=== PATIENT | female | born 1965 | race Caucasian/White ===

== ENCOUNTER 2023-07-19 09:23 | Outpatient (CLI) | payer BC, SELFPAY ==
[2023-07-19 09:42] VITALS: BMI 27.8
[2023-07-19 10:18] LABS: Basophils # 0.1 K/mm3 (0-0.2); Basophils % 1.7 % (0.1-2.0); Eosinophils # 0.1 K/mm3 (0.0-0.4); Eosinophils % 2.2 % (0.1-12.0); Hematocrit 41.8 % (37.0-47.0); Hemoglobin 13.8 g/dL (12.2-16.2); Lymphocytes # 1.2 K/mm3 (0.7-4.5); Lymphocytes % 24.6 % (10-50); Mean Corpuscular Hemoglobin 30.3 pg (27.0-31.2); Mean Corpuscular Volume 91.9 fl (81-99); Mean Platelet Volume 7.5 fl (7.4-10.4); Monocytes # 0.3 K/mm3 (0.1-1.0); Monocytes % 6.1 % (1.7-9.3); Neutrophils # 3.2 K/mm3 (1.8-7.8); Neutrophils % 65.3 % (37.0-80.0); Platelet Count 188 K/mm3 (142-424); Red Blood Count 4.55 M/mm3 (4.20-5.40); Red Cell Distribution Width 14.3 % (11.5-17.5); White Blood Count 4.9 K/mm3 (4.8-10.8)
[2023-07-19 10:29] LABS: Alanine Aminotransferase 26 U/L (12-78); Albumin Level 4.2 g/dl (3.5-5.0); Albumin/Globulin Ratio 1.4 (1.1-1.8); Alkaline Phosphatase 74 U/L (38-126); Anion Gap 13.1 mEq/L (5-15); Aspartate Amino Transferase 36 U/L (14-36); Bilirubin,Total 0.9 mg/dl (0.2-1.3); Blood Urea Nitrogen 16 mg/dl (7-17); Calcium 9.1 mg/dl (8.4-10.2); Carbon Dioxide 27 mmol/L (22.0-30.0); Chloride 103 mmol/L (98-107); Creatinine Clearance Estimated 93 mL/min (50-200); Estimated Glomerular Filt Rate 85 ml/min (>60); GFR (African American) 103 ML/MIN (>60); Globulin 2.9 g/dL (1.3-3.2); Glucose 111 mg/dl (74-100); Lactate Dehydrogenase 286 U/L (313-618); Potassium 4.1 mmoL/L (3.5-5.1); Sodium 139 mmol/L (136-145); Total Protein,Serum 7.1 g/dl (6.3-8.2)
--- NOTE | 2023-07-19 11:48 | PC.NURSE ---
1005 Patient here for labs only per Dr. Cole order. CBC, CMP, LDH obtained via venipuncture to R AC with butterfly needle. Patient tolerated well.
== END 2023-07-19 10:10 | disposition home or self-care (01) ==
LOC: INF 09:34
PROVIDERS: Visit Provider Internal Medicine Medical Oncology
DX: C82.90 Follicular lymphoma, unspecified, unspecified site (principal)
CPT/HCPCS: 36415; 80053; 83615; 85025

== ENCOUNTER 2024-08-21 14:26 | Outpatient (CLI) | payer BC, SELFPAY ==
[2024-08-21 14:55] LABS: Basophils # 0.1 K/mm3 (0-0.2); Eosinophils # 0.1 Kmm3 (0.0-0.4); Eosinophils % 0.8 % (0.1-12.0); Hematocrit 39.2 % (37.0-47.0); Hemoglobin 13.1 g/dL (12.2-16.2); Immature Granulocytes # 0.01 10^3uL; Immature Granulocytes % 0.2 %; Lymphocytes # 1.6 K/mm3 (0.7-4.5); Lymphocytes % 25.6 % (10-50); Mean Corpuscular HGB Conc 33.4 g/dL (31.8-35.4); Mean Corpuscular Hemoglobin 30.7 pg (27.0-31.2); Mean Corpuscular Volume 91.8 fl (81-99); Mean Platelet Volume 10.1 fl (7.4-10.4); Monocytes # 0.4 K/mm3 (0.1-1.0); Monocytes % 6.9 % (1.7-9.3); Neutrophils # 4.1 K/mm3 (1.8-7.8); Neutrophils % 65.5 % (37.0-80.0); Nucleated Red Blood Cells # 0 10^3/uL; Nucleated Red Blood Cells % 0 %; Platelet Count 194 K/mm3 (142-424); Red Blood Count 4.27 M/mm3 (4.20-5.40); Red Cell Distribution Width 12.7 % (11.5-17.5); Red Cell Distribution Width-SD 42.2 fL; White Blood Count 6.2 K/mm3 (4.8-10.8)
--- OUTSIDE RECORDS SUMMARY | 2024-08-21 15:09 | XMS_ITS | Data Portability ---
Author Organization [facility] [place] - [facility] Address [address] [place] [address] Assessment No assessment recorded. Plan of Treatment Reminders Order Date Submit Date Provider Last Modified By Organization Details Last Modified Time Details Appointments None recorded. Lab PPD (purified protein derivative) , skin test [address], [address], 4 15:24:55 PPD (purified protein derivative) , skin test [address], [address], 4 15:16:38 Referral None recorded. Procedures None recorded. Surgeries None recorded. Imaging None recorded. Medication Orders Aplisol 5 tub. unit/0.1 mL intradermal injection solution 2023 024 [place] [address] Not available 4 15:54:46 Patient TargetsNo targets recorded. Patient InstructionsNo instructions recorded. Reason for Referral None Reported. Results Created Date Observation Date Name Description Value Unit Range Abnormal Flag Note LastModifiedBy Organization Detail LastModifiedTime 08/03/19 24 08/03/2023 PPD (wandy fied prote in deriv ative ), skin test TB negati ve Not Available [address], [address], 08/03/2023 15:19:08 Result Notes None recorded. Problems Name Problem SNOMED Code Status Onset Date Resolution Date Notes Provider Name and Address Organization Details Recorded Time Tubercul osis screenin g Active 2023 CARLTON tobar [facility] [place]. 4 15:18:49 Discharg e from nipple [id number] Completed 201512/11/2015 Problem Code: N64.52; Problem Code Type: ICD-10; Not Available [facility] 2 22:23:29 Suprapub ic pain 213488964 Completed 201512/11/2015 Not Available [facility] 2 22:23:29 Medical examinat ion for suspecte d conditio n Active 2020 Problem Code: Z03.89; Problem Code Type: ICD-10; Not Available [facility] 2 22:23:29 Exposure to SARS-CoV -2 Active 2021 Problem Code: Z20.822; Problem Code Type: ICD-10; Not Available [facility] 2 22:23:29 Suspecte d respirat ory disease 153273152 Active 2019 Not Available [facility] 2 22:23:29 [facility]actor [facility] [id number] Completed 201512/11/2015 Problem Code: 611.6; Problem Code Type: ICD-9; Not Available [facility] 2 22:23:29 Abdomina l pain 01877041 Completed 201512/11/2015 Problem Code: 789.09; Problem Code Type: ICD-9; Not Available [facility] 2 22:23:29 Problem Notes None recorded. Procedures Surgical History Date Name Laterality Status Provider Name and Address Organization Details Recorded Time 09/27/19 16 cholecystectomy completed Not Available [facility] 11/15/2021 22:56:26 09/27/19 16 delivery only completed Not Available [facility] 11/15/2021 22:56:26 Imaging Results None recorded. Procedure Notes None recorded. Medical Equipment None Reported. Allergies Allergen ID Allergen Name Allergen Category Reaction Reaction Severity Criticality Documentation Date Start Date Code Code System Note Provider Name and Address Organization Details Recorded Time amoxicill in trihydrat e medicatio n Not available Not available Not available 11/15/2021 37808 8 RxNorm Aller gyCod e: ''; Aller gyNam e: 'Amox icill in'; Aller gyCon ceptT ype: ''; Not Available [facility] 2 22:54:56 Medications Name Sig Start Date Stop Date Status Note LastModified by Organization Details LastModified Time prednisone 10 mg tablet TAKE 3 TABLETS BY MOUTH DAILY FOR 5 DAYS active Not Available Not Available N ot Available doxycycline hyclate 100 mg capsule TAKE 1 CAPSULE BY MOUTH TWICE PER DAY FOR 10 DAYS active Not Available Not Available No t Available azithromycin 250 mg tablet TAKE 2 TABLETS BY MOUTH ON DAY ONE. THEN 1 TABLET DAILY ON DAYS 2-5. active Not Available Not Available No t Available hydrocodone 5 mg-acetamino phen 325 mg tablet TAKE 1 TABLET BY MOUTH EVERY 6 HOURS NEEDED FOR PAIN FOR UP TO 3 DAYS. MAX DAILY AMOUNT: 4 TABLETS active Not Available Not Available No t Available Aplisol 5 tub. unit/0.1 mL intradermal injection solution Inject 0.1 mL by intradermal route. 2023 active Not Available Not Available Not Avai lable prednisone 20 mg tablet TAKE 1 TABLET (20 MG TOTAL) BY MOUTH DAILY FOR 10 DAYS active Not Available Not Available No t Available phentermine 37.5 mg tablet TAKE 1 TABLET BY MOUTH ONCE PER DAY BEFORE BREAKFAST active Not Available Not Available No t Available omeprazole 40 mg capsule,vivian yed release TAKE 1 CAPSULE BY MOUTH ONCE A DAY BEFORE A MEAL active Not Available Not Available No t Available triamcinolon e acetonide 0.1 % topical cream APPLY EXTERNALLY TWICE A DAY FOR 7 DAYS active Not Available Not Available N ot Available ketorolac 10 mg tablet TAKE 1 TABLET (10 MG TOTAL) BY MOUTH EVERY 6 HOURS NEEDED FOR UP TO 5 DAYS active Not Available Not Available No t Available amitriptylin e 25 mg tablet TAKE 1 TABLET BY MOUTH ONCE PER DAY AT BEDTIME active Not Available Not Available No t Available pravastatin 10 mg tablet TAKE 1 TABLET BY MOUTH ONCE PER DAY AT BEDTIME active Not Available Not Available No t Available montelukast 10 mg tablet TAKE 1 TABLET BY MOUTH ONCE PER DAY active Not Available Not Available No t Available pravastatin 20 mg tablet TAKE 1 TABLET BY MOUTH ONCE PER DAY AT BEDTIME (DOSE INCREASE) active Not Available Not Available No t Available mupirocin 2 % topical ointment APPLY OINTMENT EXTERNALLY TWO TIMES A DAY FOR 7 DAYS active Not Available Not Available No t Available ergocalcifer ol (vitamin D2) 1,250 mcg (50,000 unit) capsule TAKE 1 CAPSULE BY MOUTH ONCE A WEEK active Not Available Not Available No t Available methylpredni solone 4 mg tablets in a dose pack TAKE ACCORDING TO PACKAGE DIRECTIONS active Not Available Not Available N ot Available albuterol sulfate HFA 90 mcg/actuatio n aerosol inhaler INHALE 1-2 PUFFS BY INHALATION EVERY 6 HOURS NEEDED active Not Available Not Available No t Available celecoxib 100 mg capsule TAKE 1 CAPSULE BY MOUTH TWO TIMES A DAY WITH FOOD active Not Available Not Available No t Available ondansetron 4 mg disintegrati ng tablet DISSOLVE 1 TABLET ON THE TONGUE EVERY 8 HOURS NEEDED FOR NAUSEA/VOMI TING active Not Available Not Available No t Available fluticasone propionate 50 mcg/actuatio n nasal spray,suspen mary SPRAY 1 SPRAY IN EACH NOSTRIL ONCE A DAY active Not Available Not Available N ot Available diazepam 5 mg tablet TAKE 1 TABLET (5 MG TOTAL) BY MOUTH EVERY 8 HOURS NEEDED (MUSCLE SPASMS) FOR UP TO 3 DAYS. MAX DAILY AMOUNT: 15 MG active Not Available Not Available No t Available cyclobenzapr ine 5 mg tablet TAKE 1 TABLET BY MOUTH EVERY EIGHT HOURS active Not Available Not Available Not Available levocetirizi ne 5 mg tablet TAKE 1 TABLET BY MOUTH EVERY EVENING active Not Available Not Available No t Available Creon 36,000 unit-114,000 unit-180,000 unit capsule,vivian yed release active Not Available Not Available Not Available Vitals None Recorded Social History None recorded. Functional Status None recorded. Mental Status None recorded. Family History Relationship Description Onset Age of this Age Resolved Age Notes LastModified by Organization Details LastModified Time Unspecified Relation Family history of diabetes mellitus type 2 Relati ve: ''; [email or web address] Not available 11/15/2021 23:04:23 Unspecified Relation Family history of Hypertension Relati ve: ''; [email or web address] Not available 11/15/2021 23:04:23 Notes:*Procedure Description : Documented family medical history in mother*Relative: Mother *Procedure Description: Documented family medical history in father*Relative: Father Medical History No medical history recorded. Gynecological HistoryNo gynecological history recorded. Obstetrics History GPAL:G 0 P 0 0 0 0 Past Encounters Encounter ID Performer Location Encounter Start Date Encounter Closed Date Diagnosis/Indication Diagnosis SNOMED-CT Code Diagnosis ICD10 Code Diagnosis Note [id number] DEEPIKA LARSON[address] [place] [address] 08/01/2023 15:28:57 08/01/2023 17:20:06 Tuberculosis screening 471448319 Z11.1 [id number] [facility] [place] [address] 08/03/2023 15:13:33 08/03/2023 15:28:29 Tuberculosis screening 903373978 Z11.1 Health Concerns Section Related Observation LastModified by Organization Detai ls LastModified Time None Recorded Concern Status LastModified by Organization Details LastModified Time None Recorded Advance Directives Directive None Recorded Payers Insurance Date Sequence Insurance Name Policy Number Policy Sams Covered Member ID Sams Member ID Guarantor Name 08/01/2023 1 *SELF PAY* Th sirena Montemayor OBMaren Episode No OBEpisode recorded.
--- OUTSIDE RECORDS SUMMARY | 2024-08-21 15:09 | XMS_ITS | Data Portability ---
Author Organization [facility] [place], [facility] [place] Address [address] [place] [address] Care Team Providers Care Mainspring Strip Inspector Name Role Phone CALOS GANDHI Referring Provider [phone] Assessment No assessment recorded. Plan of Treatment Reminders Order Date Submit Date Provider Last Modified By Organization Details Last Modified Time Details Appointments OV EST 15 2024 09:00A M ROSALINA LY MD Not available Not available Not available Lab None recorded. Referral None recorded. Procedures None recorded. Surgeries None recorded. Imaging None recorded. Medication Orders clobetaso l 0.05 % topical gel 2024 025 [facility], [address] [place], [address], 07/01/2024 13:18:23 Patient TargetsNo targets recorded. Patient InstructionsNo instructions recorded. Reason for Referral None Reported. Results Created Date Observation Date Name Description Value Unit Range Abnormal Flag Note LastModifiedBy Organization Detail LastModifiedTime Result Notes None recorded. Problems Name Problem SNOMED Code Status Onset Date Resolution Date Notes Provider Name and Address Organization Details Recorded Time Oral lichen planus 720987889 Active 025 ROSALINA LY MD [address] [place] [address], [address], [place], [address] , [facility] [place] 06/25/2024 15:29:37 Problem Notes None recorded. Procedures Surgical History Date Name Laterality Status Provider Name and Address Organization Details Recorded Time operation on gallbladder completed Nora Ang [facility] [place] 06/25/2024 15:06:11 Imaging Results None recorded. Procedure Notes None recorded. Medical Equipment None Reported. Allergies Allergen ID Allergen Name Allergen Category Reaction Reaction Severity Criticality Documentation Date Start Date Code Code System Note Provider Name and Address Organization Details Recorded Time 712633 amoxicill in medicatio n Not available Not available Not available 06/25/2024 723 RxNorm Noraterry Jones n [facility], [facility] & [place] 15:03:19 Medications Name Sig Start Date Stop Date Status Note LastModified by Organization Details LastModified Time celecoxib 200 mg capsule TAKE 1 CAPSULE BY MOUTH TWICE PER DAY WITH FOOD active Not Available Not Available No t Available cyclobenzap rine 10 mg tablet TAKE 1/2 TABLET (5 MG TOTAL) BY MOUTH EVERY 8 (EIGHT) HOURS NEEDED FOR MUSCLE SPASMS. active Not Available Not Available No t Available prednisone 10 mg tablet TAKE 1 TABLET BY MOUTH ONCE PER DAY FOR 5 DAYS (HOLD CELEBREX WHILE TAKING) 06/25 completed Not Available Not Available Not Available doxycycline hyclate 100 mg capsule TAKE 1 CAPSULE BY MOUTH TWICE PER DAY FOR 7 DAYS active Not Available Not Available No t Available pravastatin 40 mg tablet TAKE 1 TABLET BY MOUTH ONCE A DAY (DOSE INCREASE) active Not Available Not Available No t Available fluconazole 150 mg tablet TAKE 1 TABLET ORALLY EVERY OTHER DAY FOR 3 DAYS active Not Available Not Available No t Available benzonatate 200 mg capsule TAKE 1 CAPSULE BY MOUTH NEEDED THREE TIMES A DAY FOR 10 DAYS active Not Available Not Available No t Available citalopram 10 mg tablet TAKE 1 TABLET BY MOUTH ONCE A DAY active Not Available Not Available No t Available omeprazole 40 mg capsule,del ayed release TAKE 1 CAPSULE BY MOUTH ONCE PER DAY BEFORE A MEAL active Not Available Not Available No t Available clobetasol 0.05 % topical gel APPLY A THIN LAYER TO THE AFFECTED AREA(S) BY TOPICAL ROUTE 4 TIMES PER DAY active Not Available Not Available No t Available amitriptyli ne 25 mg tablet TAKE 1 TABLET BY MOUTH EVERY NIGHT AT BEDTIME active Not Available Not Available No t Available cyanocobala min (vit B-12) 1,000 mcg/mL injection solution INJECT 1ML ONCE A WEEK FOR 4 WEEKS active Not Available Not Available No t Available oseltamivir 75 mg capsule TAKE 1 CAPSULE BY MOUTH TWICE A DAY FOR 5 DAYS active Not Available Not Available No t Available montelukast 10 mg tablet TAKE 1 TABLET BY MOUTH ONCE PER DAY active Not Available Not Available No t Available pravastatin 20 mg tablet TAKE 1 TABLET BY MOUTH ONCE A DAY active Not Available Not Available No t Available gabapentin 100 mg capsule TAKE 1 CAPSULE BY MOUTH THREE TIMES DAILY active Not Available Not Available No t Available ergocalcife rol (vitamin D2) 1,250 mcg (50,000 unit) capsule TAKE 1 CAPSULE BY MOUTH ONCE A WEEK active Not Available Not Available No t Available albuterol sulfate HFA 90 mcg/actuati on aerosol inhaler INHALE 1 PUFF BY MOUTH EVERY 4 HOURS NEEDED active Not Available Not Available No t Available celecoxib 100 mg capsule TAKE 1 CAPSULE BY MOUTH TWICE PER DAY WITH FOOD 06/25 completed Not Available Not Available Not Available levocetiriz ine 5 mg tablet TAKE 1 TABLET BY MOUTH IN THE EVENING ONCE A DAY active Not Available Not Available No t Available Creon active Not Available Not Availa ble Not Available Vitals Date Recorded Body height Body mass index (BMI) Body weight Body temperature Oxygen saturation Oxygen saturation in Arterial blood by Pulse oximetry Provider Name and Address Organization Details Last Updated DateTime 5 157.48 cm 30.2 kg/m2 81969.7 4 g 98 [degF] 96 % 96 % Nora gibbs [facility] [place] 15:03:06 Social History Question Answer Notes LastModified by [employer] Details LastModified Time Tobacco Smoking Status Never Smoker Shilpi Schmitz ekaterina, [facility] [place] 06/23/2024 14:22:28 Has Tobacco Cessation Counseling Been Provided? No Information not available 06/23/2024 Sex: Female Functional Status Question Answer Note LastModified by [employer] Details LastModified Time Do you use any illicit or recreational drugs? No Information not available 06/23/2024 Do you or have you ever used any other forms of tobacco or nicotine? No Information not available 06/23/2024 What is your level of alcohol consumption? None Information not available 06/23/2024 Mental Status None recorded. Family History Relationship Description Onset Age of this Age Resolved Age Notes LastModified by Organization Details LastModified Time Father No current problems or disability Not available 14:55:11 Father Chronic obstructive pulmonary disease pt. added direct ly (06/24) [email or web address] Not available 06/24/2024 07:41:20 Father Disorder of endocrine system pt. added direct ly (06/24) [email or web address] Not available 06/24/2024 07:41:55 Mother No current problems or disability [email or web address] Not available 14:55:11 Mother Chronic obstructive pulmonary disease pt. added direct ly (06/24) [email or web address] Not available 06/24/2024 07:41:20 Mother Disorder of endocrine system pt. added direct ly (06/24) [email or web address] Not available 06/24/2024 07:41:55 Mother Myocardial infarction pt. added direct ly (06/24) [email or web address] Not available 06/24/2024 07:42:28 Sister Disorder of endocrine system pt. added direct ly (06/24) [email or web address] Not available 06/24/2024 07:41:55 Sister Myocardial infarction pt. added direct ly (06/24) [email or web address] Not available 06/24/2024 07:42:28 Medical History Condition Response Allergies/Hayfever N Heart Problems N None N Heart Conditions N Emphysema N Migraines N Thyroid Problems N Developmental Delay N Depression N Glaucoma N Anemia N Immune System Disorder N Anesthesia Complications N Heart Attack (GA) N Anxiety Disorder N Diabetes N Bleeding Disorder N Arthritis N Hearing Loss N Tuberculosis N Acid Reflux (GERD) Y Hyperlipidemia N Cancer Y Stroke N Asthma N Sleep Disorder N GERD/Reflux N Heart Disease N Fibromyalgia N Headaches N Hypertension N Speech Delay N Kidney Disease N Gynecological HistoryNo gynecological history recorded. Obstetrics History GPAL:G 0 P 0 0 0 0 Past Encounters Encounter ID Performer Location Encounter Start Date Encounter Closed Date Diagnosis/Indication Diagnosis SNOMED-CT Code Diagnosis ICD10 Code Diagnosis Note [id number] ROSALINA LY MD [facility] [address] [facility] [address] 06/25/2024 14:54:51 06/25/2024 15:31:30 Oral lichen planus 112352521 L43.8 - Various areas of white striations as well as erythemato us plaques and areas of atrophy within the oral cavity which patient reports as painful areas. These findings are consistent with possible lichen planus likely combinatio n of reticular and erythemato us type- Will start her on steroid gel 4x daily to see if we can get some symptomati c improvemen t- I would prefer that she does not chew gum at all, however, if she needs to she needs to avoid mint and cinnamon flavored gums- Would also like her to avoid toothpaste with mint or cinnamon flavor as well as SLS- Avoid acidic or spicy foods- Return to clinic in 3-4 weeks Health Concerns Section Related Observation LastModified by Organization Detai ls LastModified Time None Recorded Concern Status LastModified by Organization Details LastModified Time None Recorded Advance Directives Directive None Recorded Payers Insurance Date Sequence Insurance Name Policy Number Policy Sams Covered Member ID Sams Member ID Guarantor Name 07/22/2024 1 [place] [id number] Andres Montemayor [id number] Lisa Montemayor Notes Date Note Type Note Provider Name and Address Organization Details Recorded Time 06/25/2024 text/html Patient presents to clinic for evaluation and management of mouth pain. She reports that for the past 3 months she has been having issues with her mouth feeling raw. Symptoms are worse with acidic foods but any foods can set it off. She does chew gum frequently, always chews double mint gum. She notes that her mouth is frequently very dry which she feels is due to medications and this is why she chews gum. Had labs done which demonstrated low levels of B12 and is currently on supplements for this which she feels has helped the pain some. Previously underwent chemotherapy due to Non hodgkins lymphoma. ROSALINA LY MD [address] [place] [address], [address], [place], [address], [place] - [facility] [place] [facility] [place] 06/25/2024 15:36:24 OBGyn Episode No OBEpisode recorded.
--- OUTSIDE RECORDS SUMMARY | 2024-08-21 15:09 | XMS_ITS | Clinical Summary ---
Author Organization [facility] Address [address] [id number] Care Team Providers Care Police Specialist Name Role Phone Sandra Smith Primary Care Provider [phone] Family History Medical History Relation Name Comments Diabetes Father Other cancer Mother Cardiac disorder Other 1 Hypertension Other 2 Lung disease Other 3 Hyperlipidemia Other 4 Relation Name Status Comments Father Mother Other 1 Other 2 Other 3 Other 4 Social History Tobacco Use Types Packs/Day Years Used Date Smoking Tobacco: Every Day Alcohol Use Standard Drinks/Week Comments No 0 (1 standard drink = 0.6 oz pur e alcohol) Comments Unknown Sex and Gender Information Value Date Recorded Sex Assigned at Not on file Legal Sex Female 8:21 PM EDT Gender Identity Not on file Sexual Orientation Not on file Last Filed Vital Signs Vital Sign Reading Time Taken Comments Blood Pressure 115/75 12/25/2019 9:22 AM EDT Pulse 59 08/20/2018 1:43 PM EDT Temperature - - Respiratory Rate - - Oxygen Saturation - - Inhaled Oxygen Concentration - - Weight 78.3 kg (172 lb 9.9 oz) 12/25/2019 9:22 A M EDT Height 157.5 cm (5' 2 ) 12/25/2019 9:22 AM EDT Body Mass Index 31.57 12/25/2019 9:22 AM EDT Plan of Treatment Health Maintenance Due Date Last Done Comments [facility]-Depression Screening 1963 [facility]-/Child/Adol SDOH Screenings 1965 [facility]- SDOH Screenings 1981 [facility]-Adult SDOH Screenings 1981 [facility]-Pap Smear 01/18/1984 [facility]-Cervical Cancer Screening 1993 [facility]-HPV/Cotest 1993 CT Colonography 01/18/2008 Colonoscopy 01/18/2008 FIT-DNA 01/18/2008 FIT 01/18/2008 FOBT 01/18/2008 Sigmoidoscopy 01/18/2008 [facility]-Colorectal Cancer Screening 01/18/2008 [facility]-Pneumococcal Vaccine: 50 + Years (1 of 1 - PCV) 2013 [id number] Vaccine ( season) 2023 06/18/2020, 05/20/2020 [facility]-Influenza Vaccine (Seaso n Ended) 2024 12/15/2009 [facility]-DTaP,Tdap,and Td Vaccine s (2 - Td or Tdap) 02/21/2028 02/20/2018 [facility]-RSV Vaccine: 60+ Years o r (1 - 1-dose 75+ series) 2038 [facility]-Zoster Vaccines Completed 06/27/2018, 03/08/2018 HPV Vaccines Aged Out No longer eligi ble based on patient's age to complete this topic [facility]-HIB Vaccines Aged Out No longer e ligible based on patient's age to complete this topic [facility]-Hepatitis A Vaccines Aged Out No longer eligible based on patient's age to complete this topic [facility]-IPV Vaccines Aged Out No longer e ligible based on patient's age to complete this topic [facility]-Rotavirus Vaccines Aged Out No lo nger eligible based on patient's age to complete this topic Insurance [facility] MEDICAID Care Teams Police Specialist Relationship Specialty Start Date End Date Sandra Smith PA [address] [place] [address] PCP - General 07/23/20
--- OUTSIDE RECORDS SUMMARY | 2024-08-21 15:09 | XMS_ITS | Data Portability ---
Author Organization [facility] Address [address] [facility] [address] [place] [address] Care Team Providers Care Matting Press Tender Name Role Phone NATALIE COLE Medical Oncologist [phone] Assessment Encounter Date Assessment Date Assessment LastModified by Organization Details LastModified Time 08/24/2016 08/24/2016 Ms. 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 She is doing well clinically and serologically. Therefore, we will continue to follow with observation only. This will include return to clinic in 3 months with examination, lab work and CAT scans. If things remain stable at that point we may increase imaging interval to 1 year. She voiced understanding and agreement and is to call if there are any questions or concerns at any time. Not available 08/24/2016 16:34:51 11/24/2016 11/24/2016 Ms. Montemayor is about 3.5 years out from completing a truncated course of Treanda/Rituxan for follicular non-Hodgkin's lymphoma, as described above. She is doing well clinically and serologically. Radiographically there is slight increase in disease in the upper retroperitoneum but other disease is stable. I would recommend continuing to follow up observation only to include return to clinic in 6 months with examination, lab work and CAT scans. For her easy bruising we will check a PT/PTT but I have reviewed with her that her platelets are normal. She voiced understanding and agreement with the above. I have asked her to call if any questions or concerns at any time. Not available 11/24/2016 14:19:23 05/28/2017 05/28/2017 Ms. Montemayor is about 4 years out from completing a truncated course of Treanda/Rituxan for follicular non-Hodgkin's lymphoma, as described above. She is doing well clinically and serologically. We will have her scheduled for CAT scans in the near future to assess for lymphadenopathy and I will contact her with these results. Assuming no significant changes on CAT scan, she would be seen back in 6 months. She voiced understanding and agreement with the above. I have asked her to call if any questions or concerns at any time. Not available 05/28/2017 14:26:05 11/05/2017 11/05/2017 Ms. Montemayor is about 4.5 years out from completing a truncated course of Treanda/Rituxan for follicular non-Hodgkin's lymphoma, as described above. She is doing well clinically and we will follow up on pending serologies. This will include recheck her B12 level. She understands that with B12 deficiency, she will require monthly lifelong injections. I also agree with repeat EGD given her newfound B12 deficiency and increase in GERD symptoms. Otherwise, she will return in 6 months with lab work and CAT scans. I have asked her to let me know if there are any questions or concerns at any time. Not available 11/05/2017 09:34:30 05/20/2018 05/20/2018 Ms. Montemayor is about 5 years out from completing a truncated course of Treanda/Rituxan for follicular non-Hodgkin's lymphoma, as described above. She is doing well clinically, serologically and radiographically. We will see her back in 6 months with examination limited work only. Next imaging will be in one year unless there are indications in the interim to do otherwise. She voiced understanding and agreement with the above. Not available 05/20/2018 12:22:29 Plan of Treatment Reminders Order Date Submit Date Provider Last Modified By Organization Details Last Modified Time Details Appointments None record ed. Lab None record ed. Referral None record ed. Procedures None record ed. Surgeries None record ed. Imaging None record ed. Medication Orders None record ed. Patient TargetsNo targets recorded. Patient Instructions Encounter Date Encounter Id Patient Instructions Last Modified By Organization Details Last Modified Time 11/24/2016 [id number] learning about healthy weight CARMEN Not available 11/26/2016 13:10:11 05/28/2017 [id number] learning about healthy weight Not available 05/28/2017 14:25:02 Reason for Referral None Reported. Results Created Date Observation Date Name Description Value Unit Range Abnormal Flag Note LastModifiedBy Organization Detail LastModifiedTime 11/25/19 17 11/24/2016 CBC w/ auto diff white blood cells 5.0 K/uL 3.8-10 .8 normal Not Available [facility] [address] [place] [address], [id number], 11/24/2016 10:13:24 11/25/19 17 11/24/2016 CBC w/ auto diff red blood cells 4.41 M/uL 3.80-5 .20 normal Not Available [facility] [address] [place] [address], [address], 11/24/2016 10:13:24 11/25/19 17 11/24/2016 CBC w/ auto diff hemoglobin 13.8 g/dL 12.0-1 6.0 normal Not Available [facility] [address] [place] [address], [address], 11/24/2016 10:13:24 11/25/19 17 11/24/2016 CBC w/ auto diff hematocrit 40.0 % 35.0-4 7.0 normal Not Available [facility] [address] [place] [address], [address], 11/24/2016 10:13:24 11/25/19 17 11/24/2016 CBC w/ auto diff MCV 91 fL 80-100 normal Not Available [facility] [address] [place] [address], [address], 11/24/2016 10:13:24 11/25/19 17 11/24/2016 CBC w/ auto diff MCH 31 pg 26-35 normal Not Available [facility] [address] [place] [address], [address], 11/24/2016 10:13:24 11/25/19 17 11/24/2016 CBC w/ auto diff MCHC 35 g/dL 32-36 normal Not Available [facility] [address] [place] [address], [address], 11/24/2016 10:13:24 11/25/19 17 11/24/2016 CBC w/ auto diff RDW 12.8 % 11.0-1 5.0 normal Not Available [facility] [address] [place] [address], [address], 11/24/2016 10:13:24 11/25/19 17 11/24/2016 CBC w/ auto diff MPV 8.5 fL 6.2-10 .5 normal Not Available [facility] [address] [place] [address], [address], 11/24/2016 10:13:24 11/25/19 17 11/24/2016 CBC w/ auto diff platelet count 198 K/uL 130-40 0 normal Not Available [facility] [address] [place] [address], [address], 11/24/2016 10:13:24 11/25/19 17 11/24/2016 CBC w/ auto diff neutrophil,a bsolute 3.3 K/uL 1.6-8. 4 normal Not Available [facility] [address] [place] [address], [address], 11/24/2016 10:13:24 11/25/19 17 11/24/2016 CBC w/ auto diff lymphocyte,a bsolute 1.0 K/uL 0.4-5. 1 normal Not Available [facility] [address] [place] [address], [address], 11/24/2016 10:13:24 11/25/19 17 11/24/2016 CBC w/ auto diff monocyte,abs olute 0.5 K/uL 0.0-1. 2 normal Not Available [facility] [address] [place] [address], [address], 11/24/2016 10:13:24 11/25/19 17 11/24/2016 CBC w/ auto diff eosinophil,a bsolute 0.1 K/uL 0.0-0. 8 normal Not Available [facility] [address] [place] [address], [address], 11/24/2016 10:13:24 11/25/19 17 11/24/2016 CBC w/ auto diff basophil,abs olute 0.1 K/uL 0.0-0. 3 normal Not Available [facility] [address] [place] [address], [address], 11/24/2016 10:13:24 11/25/19 17 11/24/2016 CBC w/ auto diff % neutrophils 65.7 % 42.0-7 8.0 normal Not Available [facility] [address] [place] [address], [address], 11/24/2016 10:13:24 11/25/1911/24/2016 CBC w/ auto diff % lymphocytes 19.9 % 11.0-4 7.0 normal Not Available [facility] [address] [place] [address], [address], 11/24/2016 10:13:24 11/25/1911/24/2016 CBC w/ auto diff % monocytes 10.7 % 0.0-11 .0 normal Not Available [facility] [address] [place] [address], [address], 11/24/2016 10:13:24 11/25/1911/24/2016 CBC w/ auto diff % eosinophils 2.6 % 0.0-7. 0 normal Not Available [facility] [address] [place] [address], [address], 11/24/2016 10:13:24 11/25/1911/24/2016 CBC w/ auto diff % basophils 1.1 % 0.0-3. 0 normal Not Available [facility] [address] [place] [address], [address], 11/24/2016 10:13:24 11/25/1911/24/2016 CBC w/ auto diff nucleated red cells 0.0 % 0.0-0. 9 normal Not Available [facility] [address] [place] [address], [address], 11/24/2016 10:13:24 11/25/19 17 11/24/2016 CBC w/ auto diff nucleated RBCs, absolute 0.00 K/uL not estab. normal Not Available [facility] [address] [place] [address], [address], 11/24/2016 10:13:24 11/25/19 17 11/24/2016 ldh, serum or plasm a LDH 248 U/L 135-21 4 high Not Available [facility] [address] [place] [address], [address], 11/24/2016 10:40:40 11/25/19 17 11/24/2016 CMP, serum or plasm a glucose 104 mg/dL 74-100 high Not Available [facility] [address] [place] [address], [address], 11/24/2016 10:44:20 11/25/19 17 11/24/2016 CMP, serum or plasm a blood urea nitrogen 17 mg/dL 6-20 normal Not Available [facility] [address] [place] [address], [address], 11/24/2016 10:44:20 11/25/19 17 11/24/2016 CMP, serum or plasm a creatinine 0.72 mg/dL 0.50-0 .95 normal Not Available [facility] [address] [place] [address], [address], 11/24/2016 10:44:20 11/25/19 17 11/24/2016 CMP, serum or plasm a BUN/creatini ne ratio 24 (calc ) 10-20 high Not Available [facility] [address] [place] [address], [address], 11/24/2016 10:44:20 11/25/19 17 11/24/2016 CMP, serum or plasm a GFR 110 >= 60 normal Not Available [facility] [address] [place], [address], 11/24/2016 10:44:20 11/25/19 17 11/24/2016 CMP, serum or plasm a GFR non- 95 >= 60 normal NOT E NEW calcu latio n for GFR is based on the Natio nal Kidne y Found ation CKD-E PI equat ion and allow s for repor ting GFR value s great er than 60 mL/mi n/1.7 3 m2. This calcu latio n has not been valid ated for patie nts less than 18 yrs., pregn ant women and Hispa nics. Chron ic kidne y disea se is defin ed as kidne y damag e or GFR less than 60 mL/mi n/1.7 3 m2 for 3 month s or longe r. . Not Available [facility] [address] [place], [address], 11/24/2016 10:44:20 11/25/19 17 11/24/2016 CMP, serum or plasm a sodium 141 mmol/ L 136-14 5 normal Not Available [facility] [address] [place], [address], 11/24/2016 10:44:20 11/25/19 17 11/24/2016 CMP, serum or plasm a potassium 4.6 mmol/ L 3.4-5. 0 normal Not Available [facility] [address] [place], [address], 11/24/2016 10:44:20 11/25/19 17 11/24/2016 CMP, serum or plasm a chloride 104 mmol/ L 98-107 normal Not Available [facility] [address] [place], [address], 11/24/2016 10:44:20 11/25/19 17 11/24/2016 CMP, serum or plasm a carbon dioxide 28 mmol/ L 20-32 normal Not Available [facility] [address] [place], [address], 11/24/2016 10:44:20 11/25/19 17 11/24/2016 CMP, serum or plasm a anion gap 9 (calc ) 7-25 normal Not Available [facility] [address] [place] [address], [address], 11/24/2016 10:44:20 11/25/19 17 11/24/2016 CMP, serum or plasm a calcium 8.9 mg/dL 8.6-10 .2 normal Not Available [facility] [address] [place] [address], [address], 11/24/2016 10:44:20 11/25/19 17 11/24/2016 CMP, serum or plasm a total protein 6.9 g/dL 6.4-8. 3 normal Not Available [facility] [address] [place] [address], [address], 11/24/2016 10:44:20 11/25/19 17 11/24/2016 CMP, serum or plasm a albumin 4.1 g/dL 3.5-5. 2 normal Not Available [facility] [address] [place] [address], [address], 11/24/2016 10:44:20 11/25/19 17 11/24/2016 CMP, serum or plasm a globulin 2.8 g/dL_ (calc ) 1.5-4. 5 normal Not Available [facility] [address] [place] [address], [address], 11/24/2016 10:44:20 11/25/19 17 11/24/2016 CMP, serum or plasm a albumin/glob ulin ratio 1.5 (calc ) 1.1-2. 5 normal Not Available [facility] [address] [place] [address], [address], 11/24/2016 10:44:20 11/25/19 17 11/24/2016 CMP, serum or plasm a bilirubin, total 0.4 mg/dL 0.1-1. 2 normal Not Available [facility] [address] [place], [address], 11/24/2016 10:44:20 11/25/19 17 11/24/2016 CMP, serum or plasm a alkaline phosphatase 83 U/L 35-105 normal Not Available [facility] [address] [place] [address], [address], 11/24/2016 10:44:20 11/25/19 17 11/24/2016 CMP, serum or plasm a AST 17 U/L 0-32 normal Not Available [facility] [address] [place] [address], [address], 11/24/2016 10:44:20 11/25/19 17 11/24/2016 CMP, serum or plasm a ALT 13 U/L 0-33 normal Not Available [facility] [address] [place] [address], [address], 11/24/2016 10:44:20 11/25/19 17 11/24/2016 uric acid, serum or plasm a uric acid 4.0 mg/dL 2.4-5. 7 normal Not Available [facility] [address] [place] [address], [address], 11/24/2016 10:44:22 11/25/19 17 11/24/2016 PT/IN R prothrombin time 9.9 secon ds 9.4-11 .4 normal Not Available [facility] [address] [place] [address], [address], 11/24/2016 15:27:06 11/25/19 17 11/24/2016 PT/IN R INR 1.0 2.0-3. 0 low INR OF 2.0 TO 3.0 RECOM SANG D FOR: PROPH YLAXI S AND TREAT MENT OF VENOU S THROM BOSIS TREAT MENT OF PULMO NARY EMBOL ISM PREVE NTION OF SYSTE VIVIANA EMBOL ISM TISSU E HEART VALVE S, VALVU LAR HEART DISEA SE ACUTE MYOCA RDIAL INFAR CTION , ATRIA L FIBRI LLATI ON INR OF 2.5 TO 3.5 RECOM SANG D FOR: RECUR RENT SYSTE VIVIANA EMBOL ISM MECHA NICAL PROST HETIC VALVE S Not Available [facility] [address] [place] [address], [address], 11/24/2016 15:27:06 11/25/19 17 11/24/2016 parti al throm bopla stin time, activ ated (aptt ), plasm a (post -hepa rin) PTT (APTT) 24.7 secon ds 23.2-3 2.8 normal Not Available [facility] [address] [place] [address], [address], 11/24/2016 15:27:08 05/29/19 18 05/28/2017 CBC w/ auto diff white blood cells 6.4 K/uL 3.8-10 .8 normal Not Available [facility] [address] [place] [address], [address], 05/28/2017 12:15:00 05/29/19 18 05/28/2017 CBC w/ auto diff red blood cells 4.56 M/uL 3.80-5 .20 normal Not Available [facility] [address] [place] [address], [address], 05/28/2017 12:15:00 05/29/19 18 05/28/2017 CBC w/ auto diff hemoglobin 14.2 g/dL 12.0-1 6.0 normal Not Available [facility] [address] [place] [address], [address], 05/28/2017 12:15:00 05/29/19 18 05/28/2017 CBC w/ auto diff hematocrit 40.5 % 35.0-4 7.0 normal Not Available [facility] [address] [place] [address], [address], 05/28/2017 12:15:00 05/29/19 18 05/28/2017 CBC w/ auto diff MCV 89 fL 80-100 normal Not Available [facility] [address] [place] [address], [address], 05/28/2017 12:15:00 05/29/19 18 05/28/2017 CBC w/ auto diff MCH 31 pg 26-35 normal Not Available [facility] [address] [place] [address], [address], 05/28/2017 12:15:00 05/29/19 18 05/28/2017 CBC w/ auto diff MCHC 35 g/dL 32-36 normal Not Available [facility] [address] [place] [address], [address], 05/28/2017 12:15:00 05/29/19 18 05/28/2017 CBC w/ auto diff RDW 13.6 % 11.0-1 5.0 normal Not Available [facility] [address] [place] [address], [address], 05/28/2017 12:15:00 05/29/19 18 05/28/2017 CBC w/ auto diff MPV 8.4 fL 6.2-10 .5 normal Not Available [facility] [address] [place] [address], [address], 05/28/2017 12:15:00 05/29/19 18 05/28/2017 CBC w/ auto diff platelet count 194 K/uL 130-40 0 normal Not Available [facility] [address] [place] [address], [address], 05/28/2017 12:15:00 05/29/19 18 05/28/2017 CBC w/ auto diff neutrophil,a bsolute 4.2 K/uL 1.6-8. 4 normal Not Available [facility] [address] [place] [address], [address], 05/28/2017 12:15:00 05/29/19 18 05/28/2017 CBC w/ auto diff lymphocyte,a bsolute 1.5 K/uL 0.4-5. 1 normal Not Available [facility] [address] [place] [address], [address], 05/28/2017 12:15:00 05/29/19 18 05/28/2017 CBC w/ auto diff monocyte,abs olute 0.5 K/uL 0.0-1. 2 normal Not Available [facility] [address] [place] [address], [address], 05/28/2017 12:15:00 05/29/19 18 05/28/2017 CBC w/ auto diff eosinophil,a bsolute 0.2 K/uL 0.0-0. 8 normal Not Available [facility] [address] [place] [address], [address], 05/28/2017 12:15:00 05/29/19 18 05/28/2017 CBC w/ auto diff basophil,abs olute 0.1 K/uL 0.0-0. 3 normal Not Available [facility] [address] [place] [address], [address], 05/28/2017 12:15:00 05/29/19 18 05/28/2017 CBC w/ auto diff % neutrophils 65.2 % 42.0-7 8.0 normal Not Available [facility] [address] [place] [address], [address], 05/28/2017 12:15:00 05/29/19 18 05/28/2017 CBC w/ auto diff % lymphocytes 23.2 % 11.0-4 7.0 normal Not Available [facility] [address] [place] [address], [address], 05/28/2017 12:15:00 05/29/19 18 05/28/2017 CBC w/ auto diff % monocytes 7.8 % 0.0-11 .0 normal Not Available [facility] [address] [place] [address], [address], 05/28/2017 12:15:00 05/29/19 18 05/28/2017 CBC w/ auto diff % eosinophils 2.9 % 0.0-7. 0 normal Not Available [facility] [address] [place] [address], [address], 05/28/2017 12:15:00 05/29/19 18 05/28/2017 CBC w/ auto diff % basophils 0.9 % 0.0-3. 0 normal Not Available [facility] [address] [place] [address], [address], 05/28/2017 12:15:00 05/29/19 18 05/28/2017 CBC w/ auto diff nucleated red cells 0.0 % 0.0-0. 9 normal Not Available [facility] [address] [place] [address], [address], 05/28/2017 12:15:00 05/29/19 18 05/28/2017 CBC w/ auto diff nucleated RBCs, absolute 0.00 K/uL not estab. normal Not Available [facility] [address] [place] [address], [address], 05/28/2017 12:15:00 05/29/19 18 05/28/2017 CMP, serum or plasm a glucose 110 mg/dL 74-100 high SPECI MEN SLIGH TLY LIPEM IC. Not Available [facility] [address] [place] [address], [address], 05/28/2017 12:58:54 05/29/19 18 05/28/2017 CMP, serum or plasm a blood urea nitrogen 18 mg/dL 6-20 normal Not Available [facility] [address] [place] [address], [address], 05/28/2017 12:58:54 05/29/19 18 05/28/2017 CMP, serum or plasm a creatinine 0.77 mg/dL 0.50-0 .95 normal Not Available [facility] [address] [place] [address], [address], 05/28/2017 12:58:54 05/29/19 18 05/28/2017 CMP, serum or plasm a BUN/creatini ne ratio 23 (calc ) 10-20 high Not Available [facility] [address] [place] [address], [address], 05/28/2017 12:58:54 05/29/19 18 05/28/2017 CMP, serum or plasm a sodium 143 mmol/ L 136-14 5 normal Not Available [facility] [address] [place] [address], [address], 05/28/2017 12:58:54 05/29/19 18 05/28/2017 CMP, serum or plasm a potassium 4.1 mmol/ L 3.4-5. 0 normal Not Available [facility] [address] [place] [address], [address], 05/28/2017 12:58:54 05/29/19 18 05/28/2017 CMP, serum or plasm a chloride 104 mmol/ L 98-107 normal Not Available [facility] [address] [place] [address], [address], 05/28/2017 12:58:54 05/29/19 18 05/28/2017 CMP, serum or plasm a carbon dioxide 29 mmol/ L 20-32 normal Not Available [facility] [address] [place] [address], [address], 05/28/2017 12:58:54 05/29/19 18 05/28/2017 CMP, serum or plasm a anion gap 10 (calc ) 7-25 normal Not Available [facility] [address] [place] [address], [address], 05/28/2017 12:58:54 05/29/19 18 05/28/2017 CMP, serum or plasm a calcium 9.4 mg/dL 8.6-10 .2 normal Not Available [facility] [address] [place] [address], [address], 05/28/2017 12:58:54 05/29/19 18 05/28/2017 CMP, serum or plasm a total protein 6.5 g/dL 6.4-8. 3 normal Not Available [facility] [address] [place] [address], [address], 05/28/2017 12:58:54 05/29/19 18 05/28/2017 CMP, serum or plasm a albumin 4.3 g/dL 3.5-5. 2 normal Not Available [facility] [address] [place] [address], [address], 05/28/2017 12:58:54 05/29/19 18 05/28/2017 CMP, serum or plasm a globulin 2.2 g/dL_ (calc ) 1.5-4. 5 normal Not Available [facility] [address] [place] [address], [address], 05/28/2017 12:58:54 05/29/19 18 05/28/2017 CMP, serum or plasm a albumin/glob ulin ratio 2.0 (calc ) 1.1-2. 5 normal Not Available [facility] [address] [place] [address], [address], 05/28/2017 12:58:54 05/29/19 18 05/28/2017 CMP, serum or plasm a bilirubin, total 0.3 mg/dL 0.1-1. 2 normal Not Available [facility] [address] [place] [address], [address], 05/28/2017 12:58:54 05/29/19 18 05/28/2017 CMP, serum or plasm a alkaline phosphatase 76 U/L 35-105 normal Not Available [facility] [address] [place] [address], [address], 05/28/2017 12:58:54 05/29/19 18 05/28/2017 CMP, serum or plasm a ALT 17 U/L 0-33 normal Not Available [facility] [address] [place] [address], [address], 05/28/2017 12:58:54 05/29/19 18 05/28/2017 CMP, serum or plasm a GFR 101 >= 60 normal Not Available [facility] [address] [place], [address], 05/28/2017 12:58:54 05/29/19 18 05/28/2017 CMP, serum or plasm a GFR non- 87 >= 60 normal NOT E Calcu latio n for GFR is based on the Natio nal Kidne y Found ation CKD-E PI equat ion and allow s for repor ting GFR value s great er than 60 mL/mi n/1.7 3 m2. This calcu latio n has not been valid ated for patie nts less than 18 yrs., pregn ant women and Hispa nics. Chron ic kidne y disea se is defin ed as kidne y damag e or GFR less than 60 mL/mi n/1.7 3 m2 for 3 month s or longe r. . Not Available [facility] Laboratory [address] [place] [address], [address], 05/28/2017 12:58:54 05/29/19 18 05/28/2017 uric acid, serum or plasm a uric acid 4.2 mg/dL 2.4-5. 7 normal Not Available [facility] [place], [address], 05/28/2017 12:58:56 05/29/19 18 05/29/2017 ldh, serum or plasm a quest LDH 189 U/L 120-25 0 normal TEST PERFO RMED AT: [facility] [address] [place] [address] JUDD SANTIZO M.D. Not Available [facility] [address] [place], [address], 05/29/2017 05:27:50 05/29/19 18 05/29/2017 AST/S GOT (aspa rtate amino trans feras e), serum or plasm a quest AST 21 U/L 10-35 normal TEST PERFO RMED AT: [facility] [address] [place] [address] JUDD SANTIZO M.D. Not Available [facility] [address] [place], [address], 05/29/2017 05:32:17 11/06/19 18 11/05/2017 CBC w/ auto diff white blood cells 5.7 K/uL 3.8-10 .8 normal Not Available [facility] [address] [place] [address], [address], 11/05/2017 08:53:36 11/06/19 18 11/05/2017 CBC w/ auto diff red blood cells 4.56 M/uL 3.80-5 .20 normal Not Available [facility] [address] [place] [address], [address], 11/05/2017 08:53:36 11/06/19 18 11/05/2017 CBC w/ auto diff hemoglobin 14.4 g/dL 12.0-1 6.0 normal Not Available [facility] [address] [place] [address], [address], 11/05/2017 08:53:36 11/06/19 18 11/05/2017 CBC w/ auto diff hematocrit 41.0 % 35.0-4 7.0 normal Not Available [facility] [address] [place] [address], [address], 11/05/2017 08:53:36 11/06/19 18 11/05/2017 CBC w/ auto diff MCV 90 fL 80-100 normal Not Available [facility] [address] [place] [address], [address], 11/05/2017 08:53:36 11/06/19 18 11/05/2017 CBC w/ auto diff MCH 32 pg 26-35 normal Not Available [facility] [address] [place] [address], [address], 11/05/2017 08:53:36 11/06/19 18 11/05/2017 CBC w/ auto diff MCHC 35 g/dL 32-36 normal Not Available [facility] [address] [place] [address], [address], 11/05/2017 08:53:36 11/06/19 18 11/05/2017 CBC w/ auto diff RDW 13.4 % 11.0-1 5.0 normal Not Available [facility] [address] [place] [address], [address], 11/05/2017 08:53:36 11/06/19 18 11/05/2017 CBC w/ auto diff MPV 8.9 fL 6.2-10 .5 normal Not Available [facility] [address] [place] [address], [address], 11/05/2017 08:53:36 11/06/19 18 11/05/2017 CBC w/ auto diff platelet count 168 K/uL 130-40 0 normal Not Available [facility] [address] [place] [address], [address], 11/05/2017 08:53:36 11/06/19 18 11/05/2017 CBC w/ auto diff neutrophil,a bsolute 3.7 K/uL 1.6-8. 4 normal Not Available [facility] [address] [place] [address], [address], 11/05/2017 08:53:36 11/06/19 18 11/05/2017 CBC w/ auto diff lymphocyte,a bsolute 1.2 K/uL 0.4-5. 1 normal Not Available [facility] [address] [place] [address], [address], 11/05/2017 08:53:36 11/06/19 18 11/05/2017 CBC w/ auto diff monocyte,abs olute 0.5 K/uL 0.0-1. 2 normal Not Available [facility] [address] [place] [address], [address], 11/05/2017 08:53:36 11/06/19 18 11/05/2017 CBC w/ auto diff eosinophil,a bsolute 0.2 K/uL 0.0-0. 8 normal Not Available [facility] [address] [place] [address], [address], 11/05/2017 08:53:36 11/06/19 18 11/05/2017 CBC w/ auto diff basophil,abs olute 0.1 K/uL 0.0-0. 3 normal Not Available [facility] [address] [place] [address], [address], 11/05/2017 08:53:36 11/06/19 18 11/05/2017 CBC w/ auto diff % neutrophils 65.9 % 42.0-7 8.0 normal Not Available [facility] [address] [place] [address], [address], 11/05/2017 08:53:36 11/06/19 18 11/05/2017 CBC w/ auto diff % lymphocytes 21.7 % 11.0-4 7.0 normal Not Available [facility] [address] [place] [address], [address], 11/05/2017 08:53:36 11/06/19 18 11/05/2017 CBC w/ auto diff % monocytes 8.2 % 0.0-11 .0 normal Not Available [facility] [address] [place] [address], [address], 11/05/2017 08:53:36 11/06/19 18 11/05/2017 CBC w/ auto diff % eosinophils 3.3 % 0.0-7. 0 normal Not Available [facility] [address] [place] [address], [address], 11/05/2017 08:53:36 11/06/19 18 11/05/2017 CBC w/ auto diff % basophils 0.9 % 0.0-3. 0 normal Not Available [facility] [address] [place] [address], [address], 11/05/2017 08:53:36 11/06/19 18 11/05/2017 CBC w/ auto diff nucleated red cells 0.3 % 0.0-0. 9 normal Not Available [facility] [address] [place] [address], [address], 11/05/2017 08:53:36 11/06/19 18 11/05/2017 CBC w/ auto diff nucleated RBCs, absolute 0.02 K/uL not estab. normal Not Available [facility] [address] [place] [address], [address], 11/05/2017 08:53:36 11/06/19 18 11/05/2017 CMP, serum or plasm a glucose 108 mg/dL 74-100 high Not Available [facility] [address] [place] [address], [address], 11/05/2017 09:24:58 11/06/19 18 11/05/2017 CMP, serum or plasm a blood urea nitrogen 13 mg/dL 6-20 normal Not Available [facility] [address] [place] [address], [address], 11/05/2017 09:24:58 11/06/1911/05/2017 CMP, serum or plasm a creatinine 0.74 mg/dL 0.50-0 .95 normal Not Available [facility] [address] [place] [address], [address], 11/05/2017 09:24:58 11/06/19 18 11/05/2017 CMP, serum or plasm a BUN/creatini ne ratio 18 (calc ) 10-20 normal Not Available [facility] [address] [place] [address], [address], 11/05/2017 09:24:58 11/06/1911/05/2017 CMP, serum or plasm a sodium 141 mmol/ L 136-14 5 normal Not Available [facility] [address] [place] [address], [address], 11/05/2017 09:24:58 11/06/19 18 11/05/2017 CMP, serum or plasm a potassium 4.3 mmol/ L 3.4-5. 0 normal Not Available [facility] [address] [place] [address], [address], 11/05/2017 09:24:58 11/06/19 18 11/05/2017 CMP, serum or plasm a chloride 105 mmol/ L 98-107 normal Not Available [facility] [address] [place] [address], [address], 11/05/2017 09:24:58 11/06/19 18 11/05/2017 CMP, serum or plasm a carbon dioxide 24 mmol/ L 20-32 normal Not Available [facility] [address] [place] [address], [address], 11/05/2017 09:24:58 11/06/1911/05/2017 CMP, serum or plasm a anion gap 12 (calc ) 7-25 normal Not Available [facility] [address] [place] [address], [address], 11/05/2017 09:24:58 11/06/1911/05/2017 CMP, serum or plasm a calcium 9.2 mg/dL 8.6-10 .2 normal Not Available [facility] [address] [place] [address], [address], 11/05/2017 09:24:58 11/06/19 18 11/05/2017 CMP, serum or plasm a total protein 6.4 g/dL 6.4-8. 3 normal Not Available [facility] [address] [place] [address], [address], 11/05/2017 09:24:58 11/06/19 18 11/05/2017 CMP, serum or plasm a albumin 4.3 g/dL 3.5-5. 2 normal Not Available [facility] [address] [place] [address], [address], 11/05/2017 09:24:58 11/06/1911/05/2017 CMP, serum or plasm a globulin 2.1 g/dL_ (calc ) 1.5-4. 5 normal Not Available [facility] [address] [place] [address], [address], 11/05/2017 09:24:58 11/06/19 18 11/05/2017 CMP, serum or plasm a albumin/glob ulin ratio 2.0 (calc ) 1.1-2. 5 normal Not Available [facility] [address] [place] [address], [address], 11/05/2017 09:24:58 11/06/19 18 11/05/2017 CMP, serum or plasm a bilirubin, total 0.3 mg/dL 0.1-1. 2 normal Not Available [facility] [address] [place] [address], [address], 11/05/2017 09:24:58 11/06/19 18 11/05/2017 CMP, serum or plasm a alkaline phosphatase 71 U/L 35-105 normal Not Available [facility] [address] [place] [address], [address], 11/05/2017 09:24:58 11/06/1911/05/2017 CMP, serum or plasm a AST 15 U/L 0-32 normal Not Available [facility] [address] [place] [address], [address], 11/05/2017 09:24:58 11/06/1911/05/2017 CMP, serum or plasm a ALT 13 U/L 0-33 normal Not Available [facility] [address] [place] [address], [address], 11/05/2017 09:24:58 11/06/1911/05/2017 CMP, serum or plasm a GFR 106 >= 60 normal Not Available [facility] [address] [place] [address], [address], 11/05/2017 09:24:58 11/06/1911/05/2017 CMP, serum or plasm a GFR non- 91 >= 60 normal NOT E Calcu latio n for GFR is based on the Natio nal Kidne y Found ation CKD-E PI equat ion and allow s for repor ting GFR value s great er than 60 mL/mi n/1.7 3 m2. This calcu latio n has not been valid ated for patie nts less than 18 yrs., pregn ant women and Hispa nics. Chron ic kidne y disea se is defin ed as kidne y damag e or GFR less than 60 mL/mi n/1.7 3 m2 for 3 month s or longe r. . Not Available [facility] [address] [place] [address], [address], 11/05/2017 09:24:58 11/06/19 18 11/05/2017 uric acid, serum or plasm a uric acid 3.8 mg/dL 2.4-5. 7 normal Not Available [facility] [address] [place] [address], [address], 11/05/2017 09:25:00 11/06/19 18 11/05/2017 vitam in B12, serum vitamin B12 420 pg/mL 232-12 45 normal Not Available [facility] [address] [place] [address], [address], 11/05/2017 09:48:18 11/06/19 18 11/06/2017 ldh, serum or plasm a quest LDH 178 U/L 120-25 0 normal TEST PERFO RMED AT: [facility] [address] [place] [address] JUDD SANTIZO M.D. Not Available [facility] [address] [place] [address], [address], 11/06/2017 05:21:03 05/21/19 19 05/20/2018 CBC w/ auto diff white blood cells 4.7 K/uL 3.8-10 .8 normal RESUL TS RECHE CKED. Not Available [facility] [address] [place] [address], [address], 05/20/2018 09:30:47 05/21/1905/20/2018 CBC w/ auto diff red blood cells 4.59 M/uL 3.80-5 .20 normal Not Available [facility] [address] [place], [address], 05/20/2018 09:30:47 05/21/1905/20/2018 CBC w/ auto diff hemoglobin 14.0 g/dL 12.0-1 6.0 normal Not Available [facility] [address] [place] [address], [address], 05/20/2018 09:30:47 05/21/1905/20/2018 CBC w/ auto diff hematocrit 41.4 % 35.0-4 7.0 normal Not Available [facility] [address] [place] [address], [address], 05/20/2018 09:30:47 05/21/1905/20/2018 CBC w/ auto diff MCV 90 fL 80-100 normal Not Available [facility] [address] [place], [address], 05/20/2018 09:30:47 05/21/1905/20/2018 CBC w/ auto diff MCH 30 pg 26-35 normal Not Available [facility] [address] [place] [address], [address], 05/20/2018 09:30:47 05/21/1905/20/2018 CBC w/ auto diff MCHC 34 g/dL 32-36 normal Not Available [facility] [address] [place], [address], 05/20/2018 09:30:47 05/21/1905/20/2018 CBC w/ auto diff RDW 14.1 % 11.0-1 5.0 normal Not Available [facility] [address] [place], [address], 05/20/2018 09:30:47 05/21/19 19 05/20/2018 CBC w/ auto diff MPV - fL 6.2-10 .5 abnormal Unabl e to obtai n instr ument MPV. Not Available [facility] [address] [place] [address], [address], 05/20/2018 09:30:47 05/21/1905/20/2018 CBC w/ auto diff platelet count 219 K/uL 130-40 0 normal UNABL E TO REPOR T INSTR UMENT PLATE LET COUNT . RESUL TS FROM PLATE LET ESTIM ATE. Not Available [facility] [address] [place] [address], [address], 05/20/2018 09:30:47 05/21/19 19 05/20/2018 CBC w/ auto diff neutrophil,a bsolute 3.0 K/uL 1.6-8. 4 normal Not Available [facility] [address] [place] [address], [address], 05/20/2018 09:30:47 05/21/19 19 05/20/2018 CBC w/ auto diff lymphocyte,a bsolute 1.1 K/uL 0.4-5. 1 normal Not Available [facility] [address] [place] [address], [address], 05/20/2018 09:30:47 05/21/19 19 05/20/2018 CBC w/ auto diff monocyte,abs olute 0.4 K/uL 0.0-1. 2 normal Not Available [facility] [address] [place] [address], [address], 05/20/2018 09:30:47 05/21/1905/20/2018 CBC w/ auto diff eosinophil,a bsolute 0.2 K/uL 0.0-0. 8 normal Not Available [facility] [address] [place] [address], [address], 05/20/2018 09:30:47 05/21/1905/20/2018 CBC w/ auto diff basophil,abs olute 0.0 K/uL 0.0-0. 3 normal Not Available [facility] [address] [place] [address], [address], 05/20/2018 09:30:47 05/21/1905/20/2018 CBC w/ auto diff % neutrophils 62.5 % 42.0-7 8.0 normal Not Available [facility] [address] [place] [address], [address], 05/20/2018 09:30:47 05/21/1905/20/2018 CBC w/ auto diff % lymphocytes 24.2 % 11.0-4 7.0 normal Not Available [facility] [address] [place] [address], [address], 05/20/2018 09:30:47 05/21/1905/20/2018 CBC w/ auto diff % monocytes 9.0 % 0.0-11 .0 normal Not Available [facility] [address] [place] [address], [address], 05/20/2018 09:30:47 05/21/1905/20/2018 CBC w/ auto diff % eosinophils 3.3 % 0.0-7. 0 normal Not Available [facility] [address] [place] [address], [address], 05/20/2018 09:30:47 05/21/1905/20/2018 CBC w/ auto diff % basophils 1.0 % 0.0-3. 0 normal Not Available [facility] [address] [place] [address], [address], 05/20/2018 09:30:47 05/21/1905/20/2018 CBC w/ auto diff nucleated red cells 0.1 % 0.0-0. 9 normal Not Available [facility] [address] [place] [address], [address], 05/20/2018 09:30:47 05/21/1905/20/2018 CBC w/ auto diff nucleated RBCs, absolute 0.00 K/uL not estab. normal Not Available [facility] [address] [place] [address], [address], 05/20/2018 09:30:47 05/21/19 19 05/20/2018 RBC morph ology , blood platelet morphology NORMAL normal Not Available [facility] [address] [place] [address], [address], 05/20/2018 09:30:16 05/21/19 19 05/20/2018 RBC morph ology , blood polychromasi a SLIGHT abnormal Not Available [facility] [address] [place] [address], [address], 05/20/2018 09:30:16 05/21/19 19 05/20/2018 RBC morph ology , blood ovalocytes SLIGHT abnormal Not Available [facility] [address] [place] [address], [address], 05/20/2018 09:30:16 05/21/19 19 05/20/2018 RBC morph ology , blood stomatocytes SLIGHT abnormal Not Available [facility] [address] [place] [address], [address], 05/20/2018 09:30:16 05/21/19 19 05/20/2018 CMP, serum or plasm a glucose 106 mg/dL 74-100 high Not Available [facility] [address] [place] [address], [address], 05/20/2018 10:08:40 05/21/19 19 05/20/2018 CMP, serum or plasm a blood urea nitrogen 17 mg/dL 6-20 normal Not Available [facility] [address] [place] [address], [address], 05/20/2018 10:08:40 05/21/19 19 05/20/2018 CMP, serum or plasm a creatinine 0.69 mg/dL 0.50-0 .95 normal Not Available [facility] [address] [place] [address], [address], 05/20/2018 10:08:40 05/21/19 19 05/20/2018 CMP, serum or plasm a BUN/creatini ne ratio 25 (calc ) 10-20 high Not Available [facility] [address] [place] [address], [address], 05/20/2018 10:08:40 05/21/19 19 05/20/2018 CMP, serum or plasm a sodium 140 mmol/ L 136-14 5 normal Not Available [facility] [address] [place] [address], [address], 05/20/2018 10:08:40 05/21/19 19 05/20/2018 CMP, serum or plasm a potassium 4.2 mmol/ L 3.4-5. 0 normal Not Available [facility] [address] [place] [address], [address], 05/20/2018 10:08:40 05/21/19 19 05/20/2018 CMP, serum or plasm a chloride 109 mmol/ L 98-107 high Not Available [facility] [address] [place] [address], [address], 05/20/2018 10:08:40 05/21/19 19 05/20/2018 CMP, serum or plasm a carbon dioxide 20 mmol/ L 20-32 normal Not Available [facility] [address] [place] [address], [address], 05/20/2018 10:08:40 05/21/19 19 05/20/2018 CMP, serum or plasm a anion gap 11 (calc ) 7-25 normal Not Available [facility] [address] [place] [address], [address], 05/20/2018 10:08:40 05/21/19 19 05/20/2018 CMP, serum or plasm a calcium 9.3 mg/dL 8.6-10 .2 normal Not Available [facility] [address] [place] [address], [address], 05/20/2018 10:08:40 05/21/19 19 05/20/2018 CMP, serum or plasm a total protein 6.2 g/dL 6.4-8. 3 low Not Available [facility] [address] [place] [address], [address], 05/20/2018 10:08:40 05/21/19 19 05/20/2018 CMP, serum or plasm a albumin 3.9 g/dL 3.5-5. 2 normal Not Available [facility] [address] [place] [address], [address], 05/20/2018 10:08:40 05/21/19 19 05/20/2018 CMP, serum or plasm a globulin 2.3 g/dL_ (calc ) 1.5-4. 5 normal Not Available [facility] [address] [place] [address], [address], 05/20/2018 10:08:40 05/21/19 19 05/20/2018 CMP, serum or plasm a albumin/glob ulin ratio 1.7 (calc ) 1.1-2. 5 normal Not Available [facility] [address] [place] [address], [address], 05/20/2018 10:08:40 05/21/19 19 05/20/2018 CMP, serum or plasm a bilirubin, total <0.2 mg/dL 0.1-1. 2 normal Not Available [facility] [address] [place] [address], [address], 05/20/2018 10:08:40 05/21/19 19 05/20/2018 CMP, serum or plasm a alkaline phosphatase 73 U/L 35-105 normal Not Available [facility] [address] [place] [address], [address], 05/20/2018 10:08:40 05/21/19 19 05/20/2018 CMP, serum or plasm a AST 17 U/L 0-32 normal Not Available [facility] [address] [place] [address], [address], 05/20/2018 10:08:40 05/21/19 19 05/20/2018 CMP, serum or plasm a ALT 14 U/L 0-33 normal Not Available [facility] [address] [place] [address], [address], 05/20/2018 10:08:40 05/21/19 19 05/20/2018 CMP, serum or plasm a GFR 113 >= 60 normal Not Available [facility] [address] [place], [address], 05/20/2018 10:08:40 05/21/19 19 05/20/2018 CMP, serum or plasm a GFR non- 98 >= 60 normal NOT E NEW calcu latio n for GFR is based on the Natio nal Kidne y Found ation CKD-E PI equat ion and allow s for repor ting GFR value s great er than 60 mL/mi n/1.7 3 m2. This calcu latio n has not been valid ated for patie nts less than 18 yrs., pregn ant women and Hispa nics. Chron ic kidne y disea se is defin ed as kidne y damag e or GFR less than 60 mL/mi n/1.7 3 m2 for 3 month s or longe r. Not Available [facility] [address] [place] [address], [address], 05/20/2018 10:08:40 05/21/1905/20/2018 uric acid, serum or plasm a uric acid 3.1 mg/dL 2.4-5. 7 normal Not Available [facility] [address] [place], [address], 05/20/2018 10:08:36 11/26/19 19 11/26/2018 ldh, serum or plasm a LDH, quest 197 U/L 120-25 0 normal TEST PERFO RMED AT: [facility] [place] [address] [place] [address] JUDD SANTIZO M.D. Not Available [facility] [address] [place] [address], [address], 11/26/2018 07:15:15 11/26/19 19 11/25/2018 uric acid, serum or plasm a uric acid 4.1 mg/dL 2.4-5. 7 normal Not Available [facility] [address] [place] [address], [address], 11/25/2018 09:16:30 11/26/1911/25/2018 CMP, serum or plasm a glucose 105 mg/dL 74-100 high Not Available [facility] [address] [place] [address], [address], 11/25/2018 09:16:29 11/26/1911/25/2018 CMP, serum or plasm a blood urea nitrogen 20 mg/dL 6-20 normal Not Available [facility] [address] [place] [address], [address], 11/25/2018 09:16:29 11/26/1911/25/2018 CMP, serum or plasm a creatinine 0.76 mg/dL 0.50-0 .95 normal Not Available [facility] [address] [place] [address], [address], 11/25/2018 09:16:29 11/26/1911/25/2018 CMP, serum or plasm a BUN/creatini ne ratio 26 (calc ) 10-20 high Not Available [facility] [address] [place] [address], [address], 11/25/2018 09:16:29 11/26/1911/25/2018 CMP, serum or plasm a sodium 139 mmol/ L 136-14 5 normal Not Available [facility] [address] [place] [address], [address], 11/25/2018 09:16:29 11/26/1911/25/2018 CMP, serum or plasm a potassium 4.4 mmol/ L 3.4-5. 0 normal Not Available [facility] [address] [place] [address], [address], 11/25/2018 09:16:29 11/26/1911/25/2018 CMP, serum or plasm a chloride 106 mmol/ L 98-107 normal Not Available [facility] [address] [place] [address], [address], 11/25/2018 09:16:29 11/26/1911/25/2018 CMP, serum or plasm a carbon dioxide 20 mmol/ L 20-32 normal Not Available [facility] [address] [place] [address], [address], 11/25/2018 09:16:29 11/26/1911/25/2018 CMP, serum or plasm a anion gap 13 (calc ) 7-25 normal Not Available [facility] [address] [place] [address], [address], 11/25/2018 09:16:29 11/26/1911/25/2018 CMP, serum or plasm a calcium 9.4 mg/dL 8.6-10 .2 normal Not Available [facility] [address] [place] [address], [address], 11/25/2018 09:16:29 11/26/1911/25/2018 CMP, serum or plasm a total protein 6.8 g/dL 6.4-8. 3 normal Not Available [facility] [address] [place] [address], [address], 11/25/2018 09:16:29 11/26/1911/25/2018 CMP, serum or plasm a albumin 4.3 g/dL 3.5-5. 2 normal Not Available [facility] [address] [place] [address], [address], 11/25/2018 09:16:29 11/26/1911/25/2018 CMP, serum or plasm a globulin 2.5 g/dL_ (calc ) 1.5-4. 5 normal Not Available [facility] [address] [place] [address], [address], 11/25/2018 09:16:29 11/26/1911/25/2018 CMP, serum or plasm a albumin/glob ulin ratio 1.7 (calc ) 1.1-2. 5 normal Not Available [facility] [address] [place] [address], [address], 11/25/2018 09:16:29 11/26/1911/25/2018 CMP, serum or plasm a bilirubin, total 0.3 mg/dL 0.1-1. 2 normal Not Available [facility] [address] [place] [address], [address], 11/25/2018 09:16:29 11/26/1911/25/2018 CMP, serum or plasm a alkaline phosphatase 64 U/L 35-105 normal Not Available [facility] [address] [place] [address], [address], 11/25/2018 09:16:29 11/26/1911/25/2018 CMP, serum or plasm a AST 17 U/L 0-32 normal Not Available [facility] [address] [place] [address], [address], 11/25/2018 09:16:29 11/26/1911/25/2018 CMP, serum or plasm a ALT 14 U/L 0-33 normal Not Available [facility] [address] [place] [address], [address], 11/25/2018 09:16:29 11/26/1911/25/2018 CMP, serum or plasm a GFR 102 >= 60 normal Not Available [facility] [address] [place] [address], [address], 11/25/2018 09:16:29 11/26/1911/25/2018 CMP, serum or plasm a GFR non- 88 >= 60 normal NOT E NEW calcu latio n for GFR is based on the Natio nal Kidne y Found ation CKD-E PI equat ion and allow s for repor ting GFR value s great er than 60 mL/mi n/1.7 3 m2. This calcu latio n has not been valid ated for patie nts less than 18 yrs., pregn ant women and Hispa nics. Chron ic kidne y disea se is defin ed as kidne y damag e or GFR less than 60 mL/mi n/1.7 3 m2 for 3 month s or longe r. Not Available [facility] [address] [place] [address], [address], 11/25/2018 09:16:29 11/26/1911/25/2018 CBC w/ auto diff white blood cells 8.5 K/uL 3.8-10 .8 normal Not Available [facility] [address] [place], [address], 11/25/2018 08:47:59 11/26/1911/25/2018 CBC w/ auto diff red blood cells 4.31 M/uL 3.80-5 .20 normal Not Available [facility] [address] [place], [address], 11/25/2018 08:47:59 11/26/1911/25/2018 CBC w/ auto diff hemoglobin 13.9 g/dL 12.0-1 6.0 normal Not Available [facility] [address] [place], [address], 11/25/2018 08:47:59 11/26/1911/25/2018 CBC w/ auto diff hematocrit 39.1 % 35.0-4 7.0 normal Not Available [facility] [address] [place], [address], 11/25/2018 08:47:59 11/26/1911/25/2018 CBC w/ auto diff MCV 91 fL 80-100 normal Not Available [facility] [address] [place] [address], [address], 11/25/2018 08:47:59 11/26/1911/25/2018 CBC w/ auto diff MCH 32 pg 26-35 normal Not Available [facility] [address] [place] [address], [address], 11/25/2018 08:47:59 11/26/1911/25/2018 CBC w/ auto diff MCHC 36 g/dL 32-36 normal Not Available [facility] [address] [place] [address], [address], 11/25/2018 08:47:59 11/26/1911/25/2018 CBC w/ auto diff RDW 13.9 % 11.0-1 5.0 normal Not Available [facility] [address] [place] [address], [address], 11/25/2018 08:47:59 11/26/1911/25/2018 CBC w/ auto diff MPV 8.1 fL 6.2-10 .5 normal Not Available [facility] [address] [place] [address], [address], 11/25/2018 08:47:59 11/26/1911/25/2018 CBC w/ auto diff platelet count 244 K/uL 130-40 0 normal Not Available [facility] [address] [place] [address], [address], 11/25/2018 08:47:59 11/26/1911/25/2018 CBC w/ auto diff neutrophil,a bsolute 6.1 K/uL 1.6-8. 4 normal Not Available [facility] [address] [place] [address], [address], 11/25/2018 08:47:59 11/26/1911/25/2018 CBC w/ auto diff lymphocyte,a bsolute 1.5 K/uL 0.4-5. 1 normal Not Available [facility] [address] [place], [address], 11/25/2018 08:47:59 11/26/1911/25/2018 CBC w/ auto diff monocyte,abs olute 0.7 K/uL 0.0-1. 2 normal Not Available [facility] [address] [place] [address], [address], 11/25/2018 08:47:59 11/26/1911/25/2018 CBC w/ auto diff eosinophil,a bsolute 0.1 K/uL 0.0-0. 8 normal Not Available [facility] [address] [place] [address], [address], 11/25/2018 08:47:59 11/26/1911/25/2018 CBC w/ auto diff basophil,abs olute 0.1 K/uL 0.0-0. 3 normal Not Available [facility] [address] [place] [address], [address], 11/25/2018 08:47:59 11/26/1911/25/2018 CBC w/ auto diff % neutrophils 71.6 % 42.0-7 8.0 normal Not Available [facility] [address] [place] [address], [address], 11/25/2018 08:47:59 11/26/1911/25/2018 CBC w/ auto diff % lymphocytes 17.7 % 11.0-4 7.0 normal Not Available [facility] [address] [place] [address], [address], 11/25/2018 08:47:59 11/26/1911/25/2018 CBC w/ auto diff % monocytes 8.6 % 0.0-11 .0 normal Not Available [facility] [address] [place] [address], [address], 11/25/2018 08:47:59 11/26/1911/25/2018 CBC w/ auto diff % eosinophils 1.3 % 0.0-7. 0 normal Not Available [facility] [address] [place] [address], [address], 11/25/2018 08:47:59 11/26/1911/25/2018 CBC w/ auto diff % basophils 0.8 % 0.0-3. 0 normal Not Available [facility] [address] [place] [address], [address], 11/25/2018 08:47:59 11/26/1911/25/2018 CBC w/ auto diff nucleated red cells 0.1 % 0.0-0. 9 normal Not Available [facility] [address] [place] [address], [address], 11/25/2018 08:47:59 11/26/1911/25/2018 CBC w/ auto diff nucleated RBCs, absolute 0.01 K/uL not estab. normal Not Available [facility] [address] [place] [address], [address], 11/25/2018 08:47:59 07/03/19 20 07/03/2019 CMP, serum or plasm a glucose 104 mg/dL 74-100 high Not Available [facility] [address] [place] [address], [address], 07/03/2019 09:50:58 07/03/19 20 07/03/2019 CMP, serum or plasm a blood urea nitrogen 23 mg/dL 6-20 high Not Available [facility] [address] [place] [address], [address], 07/03/2019 09:50:58 07/03/19 20 07/03/2019 CMP, serum or plasm a creatinine 0.80 mg/dL 0.50-0 .95 normal Not Available [facility] [address] [place] [address], [address], 07/03/2019 09:50:58 07/03/19 20 07/03/2019 CMP, serum or plasm a BUN/creatini ne ratio 29 (calc ) 10-20 high Not Available [facility] [address] [place] [address], [address], 07/03/2019 09:50:58 07/03/19 20 07/03/2019 CMP, serum or plasm a sodium 144 mmol/ L 136-14 5 normal Not Available [facility] [address] [place] [address], [address], 07/03/2019 09:50:58 07/03/19 20 07/03/2019 CMP, serum or plasm a potassium 4.4 mmol/ L 3.4-5. 0 normal Not Available [facility] [address] [place] [address], [address], 07/03/2019 09:50:58 07/03/19 20 07/03/2019 CMP, serum or plasm a chloride 105 mmol/ L 98-107 normal Not Available [facility] [address] [place] [address], [address], 07/03/2019 09:50:58 07/03/1907/03/2019 CMP, serum or plasm a carbon dioxide 26 mmol/ L 20-32 normal Not Available [facility] [address] [place] [address], [address], 07/03/2019 09:50:58 07/03/1907/03/2019 CMP, serum or plasm a anion gap 13 (calc ) 7-25 normal Not Available [facility] [address] [place] [address], [address], 07/03/2019 09:50:58 07/03/1907/03/2019 CMP, serum or plasm a calcium 9.3 mg/dL 8.6-10 .2 normal Not Available [facility] [address] [place] [address], [address], 07/03/2019 09:50:58 07/03/19 20 07/03/2019 CMP, serum or plasm a total protein 6.5 g/dL 6.4-8. 3 normal Not Available [facility] [address] [place] [address], [address], 07/03/2019 09:50:58 07/03/19 20 07/03/2019 CMP, serum or plasm a albumin 4.1 g/dL 3.5-5. 2 normal Not Available [facility] [address] [place] [address], [address], 07/03/2019 09:50:58 07/03/19 20 07/03/2019 CMP, serum or plasm a globulin 2.4 g/dL_ (calc ) 1.5-4. 5 normal Not Available [facility] [address] [place] [address], [address], 07/03/2019 09:50:58 07/03/19 20 07/03/2019 CMP, serum or plasm a albumin/glob ulin ratio 1.7 (calc ) 1.1-2. 5 normal Not Available [facility] [address] [place] [address], [address], 07/03/2019 09:50:58 07/03/19 20 07/03/2019 CMP, serum or plasm a bilirubin, total 0.3 mg/dL 0.1-1. 2 normal Not Available [facility] [address] [place] [address], [address], 07/03/2019 09:50:58 07/03/19 20 07/03/2019 CMP, serum or plasm a alkaline phosphatase 64 U/L 35-105 normal Not Available [facility] [address] [place] [address], [address], 07/03/2019 09:50:58 07/03/19 20 07/03/2019 CMP, serum or plasm a AST 19 U/L 0-32 normal Not Available [facility] [address] [place] [address], [address], 07/03/2019 09:50:58 07/03/19 20 07/03/2019 CMP, serum or plasm a ALT 17 U/L 0-33 normal Not Available [facility] [address] [place] [address], [address], 07/03/2019 09:50:58 07/03/19 20 07/03/2019 CMP, serum or plasm a GFR 95 >= 60 normal Not Available [facility] [address] [place] [address], [address], 07/03/2019 09:50:58 07/03/19 20 07/03/2019 CMP, serum or plasm a GFR non- 82 >= 60 normal NOT E NEW calcu latio n for GFR is based on the Natio nal Kidne y Found ation CKD-E PI equat ion and allow s for repor ting GFR value s great er than 60 mL/mi n/1.7 3 m2. This calcu latio n has not been valid ated for patie nts less than 18 yrs., pregn ant women and Hispa nics. Chron ic kidne y disea se is defin ed as kidne y damag e or GFR less than 60 mL/mi n/1.7 3 m2 for 3 month s or longe r. Not Available [facility] [address] [place] [address], [address], 07/03/2019 09:50:58 07/03/1907/03/2019 uric acid, serum or plasm a uric acid 4.8 mg/dL 2.4-5. 7 normal Not Available [facility] [address] [place] [address], [address], 07/03/2019 09:50:57 07/03/1907/03/2019 ldh, serum or plasm a LDH 211 U/L 135-21 4 normal Not Available [facility] [address] [place] [address], [address], 07/03/2019 09:19:37 07/03/1907/03/2019 CBC w/ auto diff white blood cells 5.4 K/uL 3.8-10 .8 normal Not Available [facility] [address] [place] [address], [address], 07/03/2019 08:40:59 07/03/19 20 07/03/2019 CBC w/ auto diff red blood cells 4.35 M/uL 3.80-5 .20 normal Not Available [facility] [address] [place] [address], [address], 07/03/2019 08:40:59 07/03/19 20 07/03/2019 CBC w/ auto diff hemoglobin 14.0 g/dL 12.0-1 6.0 normal Not Available [facility] [address] [place] [address], [address], 07/03/2019 08:40:59 07/03/19 20 07/03/2019 CBC w/ auto diff hematocrit 39.3 % 35.0-4 7.0 normal Not Available [facility] [address] [place] [address], [address], 07/03/2019 08:40:59 07/03/19 20 07/03/2019 CBC w/ auto diff MCV 90 fL 80-100 normal Not Available [facility] [address] [place] [address], [address], 07/03/2019 08:40:59 07/03/1907/03/2019 CBC w/ auto diff MCH 32 pg 26-35 normal Not Available [facility] [address] [place] [address], [address], 07/03/2019 08:40:59 07/03/1907/03/2019 CBC w/ auto diff MCHC 36 g/dL 32-36 normal Not Available [facility] [address] [place] [address], [address], 07/03/2019 08:40:59 07/03/1907/03/2019 CBC w/ auto diff RDW 13.4 % 11.0-1 5.0 normal Not Available [facility] [address] [place] [address], [address], 07/03/2019 08:40:59 07/03/19 20 07/03/2019 CBC w/ auto diff MPV 8.2 fL 6.2-10 .5 normal Not Available [facility] [address] [place] [address], [address], 07/03/2019 08:40:59 07/03/19 20 07/03/2019 CBC w/ auto diff platelet count 181 K/uL 130-40 0 normal Not Available [facility] [address] [place] [address], [address], 07/03/2019 08:40:59 07/03/19 20 07/03/2019 CBC w/ auto diff neutrophil,a bsolute 3.2 K/uL 1.6-8. 4 normal Not Available [facility] [address] [place] [address], [address], 07/03/2019 08:40:59 07/03/19 20 07/03/2019 CBC w/ auto diff lymphocyte,a bsolute 1.4 K/uL 0.4-5. 1 normal Not Available [facility] [address] [place] [address], [address], 07/03/2019 08:40:59 07/03/19 20 07/03/2019 CBC w/ auto diff monocyte,abs olute 0.6 K/uL 0.0-1. 2 normal Not Available [facility] [address] [place] [address], [address], 07/03/2019 08:40:59 07/03/19 20 07/03/2019 CBC w/ auto diff eosinophil,a bsolute 0.2 K/uL 0.0-0. 8 normal Not Available [facility] [address] [place] [address], [address], 07/03/2019 08:40:59 07/03/19 20 07/03/2019 CBC w/ auto diff basophil,abs olute 0.1 K/uL 0.0-0. 3 normal Not Available [facility] [address] [place] [address], [address], 07/03/2019 08:40:59 07/03/19 20 07/03/2019 CBC w/ auto diff % neutrophils 59.0 % 42.0-7 8.0 normal Not Available [facility] [address] [place] [address], [address], 07/03/2019 08:40:59 07/03/19 20 07/03/2019 CBC w/ auto diff % lymphocytes 26.1 % 11.0-4 7.0 normal Not Available [facility] [address] [place] [address], [address], 07/03/2019 08:40:59 07/03/19 20 07/03/2019 CBC w/ auto diff % monocytes 10.8 % 0.0-11 .0 normal Not Available [facility] [address] [place] [address], [address], 07/03/2019 08:40:59 07/03/19 20 07/03/2019 CBC w/ auto diff % eosinophils 2.8 % 0.0-7. 0 normal Not Available [facility] [address] [place] [address], [address], 07/03/2019 08:40:59 07/03/19 20 07/03/2019 CBC w/ auto diff % basophils 1.3 % 0.0-3. 0 normal Not Available [facility] [address] [place] [address], [address], 07/03/2019 08:40:59 07/03/19 20 07/03/2019 CBC w/ auto diff nucleated red cells 0.0 % 0.0-0. 9 normal Not Available [facility] [address] [place] [address], [address], 07/03/2019 08:40:59 07/03/19 20 07/03/2019 CBC w/ auto diff nucleated RBCs, absolute 0.00 K/uL not estab. normal Not Available [facility] [address] [place] [address], [place], [address], 07/03/2019 08:40:59 11/25/19 17 11/24/2016 CT, chest + abdom en + pelvi s, w/ contr ast [facility] [address] [facility] [place] [address] Patien t Name: RENNY Sethi t : [phone] Patien t Orderi ng Provid er: KWAN COLE EXAM DATE: 2016 EXAM: CT C/A/P WITH CONTRA [facility] CLIN[facility] AL INFORM ATION: Follow -up lympho ma. TECHNI QUE: Multip le axial CT images of the chest, abdome n and pelvis were obtain ed after inject ion of Isovue 300, 100 ml (1 x 100 ml bottle s of ND 0270-1 315-35 ) IV. Bowel was opacif ied with oral contra st. COMPAR NEISHA: 05/19/[address] 17. FINDIN GS ON CT CHEST: AIRWAY S AND LUNGS: Trache a, princi pal bronch i and major bronch ial branch es are patent and normal . Lungs are clear. MEDIAS TINUM: No medias tinal lympha denopa thy. Aorta, SVC, pulmon kerwin arteri es, pulmon kerwin veins and their major branch es and tribut carolyn are normal . No gross cardia c abnorm ality. PLEURA AND CHEST WALL: No pleura l effusi on or mass. No chest wall abnorm ality. FINDIN GS ON CT ABDOME N: UPPER ABDOMI NAL ORGANS : Gallbl adder is surgic ally absent . Liver, spleen , pancre as, adrena ls and both kidney s are normal . BOWEL AND MESENT LUZ: Stomac h, small bowel and colon are normal . No mesent nereida lympha denopa thy or perito althea free fluid. RETROP ERITON EUM: Aorta shows athero sclero tic calcif icatio ns with normal aortic calibe r. IVC and branch es are patent and normal . Lympha denopa thy is seen on the right side in the upper portio n of the retrop eriton eum. These paraca elma and retroc aval lymph nodes range in size from 1.5-3 cm. The increa sed in size from the previo us measur ement of 0.8-1. 5 cm. BODY WALL AND MUSCUL OSKELE NAYA STRUCT URES: Degene rative change s of the lumbar spine are noted. Anteri or abdomi nal wall is normal . FINDIN GS ON CT PELVIS : PELVIC CAVITY : Urinar y bladde r and rectos igmoid are normal . Uterus and ovarie s are normal . No pelvic or inguin al lympha denopa thy, mass or fluid. MUSCUL OSKELE NAYA STRUCT URES: Normal . COMBIN ED IMPRES CHIKA: Diseas e progre ssion as shown by increa se in the size of the previo usly seen paraca elma and retroc aval lymph nodes in the superi or portio n of the retrop eriton eum. No new lympha denopa thy is seen. Interp reted By: Katherine Wilburn MD Electr onical ly Signed By: Katherine Wilburn MD on 017 12:58 PM [facility] [address], [address], 11/24/2016 14:00:49 11/25/19 17 11/24/2016 CT, chest + abdom en + pelvi s, w/ contr ast [address] [address] ADDE NDUM #1 ADDEND UM: The report below has been modifi ed to clarif y measur ements .. Please use as final report . Please disreg joanne the previo us report . Navdeep figueroa Name: RENNY figueroa : [phone] Navdeep figueroa Orderi [facility] er: KWAN COLE EXAM DATE: 2016 EXAM: CT C/A/P WITH CONTRA ST CLINIC AL INFORM ATION: Follow -up lympho ma. TECHNI QUE: Multip le axial CT images of the chest, abdome n and pelvis were obtain ed after inject ion of Isovue 300, 100 ml (1 x 100 ml bottle s of ND 0270-1 315-35 ) IV. Bowel was opacif ied with oral contra st. COMPAR NEISHA: 05/19/19 17. FINDIN GS ON CT CHEST: AIRWAY S AND LUNGS: Trache a, princi pal bronch i and major bronch ial branch es are patent and normal . Lungs are clear. MEDIAS TINUM: No medias tinal lympha denopa thy. Aorta, SVC, pulmon kerwin arteri es, pulmon kerwin veins and their major branch es and tribut carolyn are normal . No gross cardia c abnorm ality. PLEURA AND CHEST WALL: No pleura l effusi on or mass. No chest wall abnorm ality. FINDIN GS ON CT ABDOME N: UPPER ABDOMI NAL ORGANS : Gallbl adder is surgic ally absent . Liver, spleen , pancre as, adrena ls and both kidney s are normal . BOWEL AND MESENT LUZ: Stomac h, small bowel and colon are normal . No mesent nereida lympha denopa thy or perito althea free fluid. RETROP ERITON EUM: Aorta shows athero sclero tic calcif icatio ns with normal aortic calibe r. IVC and branch es are patent and normal . Lympha denopa thy is seen on the right side in the upper portio n of the retrop eriton eum. These paraca elma and retroc aval lymph nodes range in size from 1.5-3 cm. They have increa sed in size from the previo us measur ement of 0.8-1. 5 cm. Additi onal perica elma lymph nodes are seen in the middle portio n of the retrop eriton eum. They measur e 3.5 x 1.8 cm and are minima lly smalle r as compar ed to the previo us measur ement of 3.6 x 2 cm. BODY WALL AND MUSCUL OSKELE NAYA STRUCT URES: Degene rative change s of the lumbar spine are noted. Anteri or abdomi nal wall is normal . FINDIN GS ON CT PELVIS : PELVIC CAVITY : Urinar y bladde r and rectos igmoid are normal . Uterus and ovarie s are normal . No pelvic or inguin al lympha denopa thy, mass or fluid. MUSCUL OSKELE NAYA STRUCT URES: Normal . COMBIN ED IMPRES CHIKA: 1. Diseas e progre ssion as shown by increa se in the size of the previo usly seen paraca elma and retroc aval lymph nodes in the superi or portio n of the retrop eriton eum. 2. Almost stable lymph nodes in the middle portio n of the retrop eriton eum. 3. No new lympha denopa thy is seen. Interp reted By: Katherine Wilburn MD Electr onical ly Signed By: Katherine Wilburn MD on 017 2:11 PM ORIGIN AL REPORT Patien t Name: RENNY MONTEMAYOR Patien t : [phone] Patien t Orderi [facility] er: KWAN COLE EXAM DATE: 2016 EXAM: CT C/A/P WITH CONTRA ST CLINIC AL INFORM ATION: Follow -up lympho ma. TECHNI QUE: Multip le axial CT images of the chest, abdome n and pelvis were obtain ed after inject ion of Isovue 300, 100 ml (1 x 100 ml bottle s of [facility] 0270-1 [id number] ) IV. Bowel was opacif ied with oral contra st. COMPAR NEISHA: 05/19/19 17. FINDIN GS ON CT CHEST: AIRWAY S AND LUNGS: Trache a, princi pal bronch i and major bronch ial branch es are patent and normal . Lungs are clear. MEDIAS TINUM: No medias tinal lympha denopa thy. Aorta, SVC, pulmon kerwin arteri es, pulmon kerwin veins and their major branch es and tribut carolyn are normal . No gross cardia c abnorm ality. PLEURA AND CHEST WALL: No pleura l effusi on or mass. No chest wall abnorm ality. FINDIN GS ON CT ABDOME N: UPPER ABDOMI NAL ORGANS : Gallbl adder is surgic ally absent . Liver, spleen , pancre as, adrena ls and both kidney s are normal . BOWEL AND MESENT LUZ: Stomac h, small bowel and colon are normal . No mesent nereida lympha denopa thy or perito althea free fluid. RETROP ERITON EUM: Aorta shows athero sclero tic calcif icatio ns with normal aortic calibe r. IVC and branch es are patent and normal . Lympha denopa thy is seen on the right side in the upper portio n of the retrop eriton eum. These paraca elma and retroc aval lymph nodes range in size from 1.5-3 cm. The increa sed in size from the previo us measur ement of 0.8-1. 5 cm. BODY WALL AND MUSCUL OSKELE NAYA STRUCT URES: Degene rative change s of the lumbar spine are noted. Anteri or abdomi nal wall is normal . FINDIN GS ON CT PELVIS : PELVIC CAVITY : Urinar y bladde r and rectos igmoid are normal . Uterus and ovarie s are normal . No pelvic or inguin al lympha denopa thy, mass or fluid. MUSCUL OSKELE NAYA STRUCT URES: Normal . COMBIN ED IMPRES CHIKA: Diseas e progre ssion as shown by increa se in the size of the previo usly seen paraca elma and retroc aval lymph nodes in the superi or portio n of the retrop eriton eum. No new lympha denopa thy is seen. Interp reted By: Katherine Wilburn MD Electr onical ly Signed By: Katherine Wilburn MD on 017 12:[address] Radiology [address], [address], 11/24/2016 14:18:16 05/29/19 18 05/28/2017 CT, chest + abdom en + pelvi s, w/ contr ast [address] [place] [address] Patien t Name: RENNY figueroa : [phone] Navdeep t Orderi [facility] er: KWAN COLE EXAM DATE: 2017 EXAM: CT C/A/P WITH CONTRA ST CLINIC AL INFORM ATION: Lympho ma TECHNI QUE: Multip le axial CT images of the chest, abdome n and pelvis were obtain ed after inject ion of Isovue 300, 100 ml (1 x 100 ml bottle s of [facility] [id number] [id number] ) IV. Bowel was opacif ied with oral contra st. COMPAR NEISHA: None. FINDIN GS ON CT CHEST: AIRWAY S AND LUNGS: Trache a, princi pal bronch i and major bronch ial branch es are patent and normal . Lungs are clear. MEDIAS TINUM: No medias tinal lympha denopa thy. Aorta, SVC, pulmon kerwin arteri es, pulmon kerwin veins and their major branch es and tribut carolyn are normal . No gross cardia c abnorm ality. PLEURA AND CHEST WALL: No pleura l effusi on or mass. No chest wall abnorm ality. FINDIN GS ON CT ABDOME N: UPPER ABDOMI NAL ORGANS : Liver, spleen , pancre as, adrena ls and both kidney s are normal . The gallbl adder is surgic ally absent . BOWEL AND MESENT LUZ: Stomac h, small bowel and colon are normal . No mesent nereida lympha denopa thy or perito althea free fluid. RETROP ERITON EUM: Aorta, IVC and their branch es are patent and normal . Upper retroc aval lymph node 1.3 x 0.5 cm, previo usly 3.5 x 3 cm. More inferi or no retroc aval adenop athy noted, previo usly 2 x 1.5 cm. Scatte red tiny subcen timete r lymph nodes are stable in the retrop eriton eum. ABDOMI NAL WALL AND SKELET AL STRUCT URES: Normal . FINDIN GS ON CT PELVIS : PELVIC CAVITY : Urinar y bladde r and rectos igmoid are normal . The uterus is atroph ic. No pelvic or inguin al lympha denopa thy, mass or fluid. MUSCUL OSKELE NAYA STRUCT URES: Normal . COMBIN ED IMPRES CHIKA: Interv al improv ement of retrop eriton eal adenop athy. No new adenop athy noted Interp reted By: Rigoberto Busch MD Electr onical ly Signed By: Rigoberto Busch MD on 018 4:08 PM [email or web address] [facility] Radiology [facility] [address] [place], [address], 05/29/2017 08:56:24 05/21/19 19 05/20/2018 CT, chest + abdom en + pelvi s, w/ contr ast [facility] [address] [facility] [place] [address] Patien t Name: RENNY figueroa : [phone] Patikatrin t Orderi ng Provid er: KWAN COLE EXAM DATE: 2018 EXAM: CT C/A/P WITH CONTRA ST CLINIC AL INFORM ATION: Follow -up lympho ma. TECHNI QUE: Multip le axial CT images of the chest, abdome n and pelvis were obtain ed after inject ion of Isovue 250, 100 ml (2x50 ml bottle s) of Isovue -370 ([facility] [id number] [id number] ) IV. Bowel was opacif ied with oral contra st. COMPAR NEISHA: CT [address] CHEST: AIRWAY S AND LUNGS: Trache a, princi pal bronch i and major bronch ial branch es are patent and normal . Mild infilt rative change s are seen in the left inferi or lingul ar segmen t. MEDIAS TINUM: No medias tinal lympha denopa thy. Aorta shows athero sclero tic calcif icatio ns with normal calibe r. SVC, pulmon kerwin arteri es, pulmon kerwin veins and their major branch es and tribut carolyn are normal . No gross cardia c abnorm ality. PLEURA AND CHEST WALL: No pleura l effusi on or mass. No chest wall abnorm ality. FINDIN GS ON CT ABDOME N: UPPER ABDOMI NAL ORGANS : Liver, gallbl adder, spleen , pancre as, adrena ls and both kidney s are normal . BOWEL AND MESENT LUZ: Stomac h, small bowel and colon are normal . No mesent nereida lympha denopa thy or perito althea free fluid. RETROP ERITON EUM: Aorta shows athero sclero tic calcif icatio ns with normal aortic calibe r. IVC and branch es are patent and normal . A few 0.5 cm diamet er lymph nodes are seen in the retrop eriton eum which are unchan ged as compar ed to the previo us exam. BODY WALL AND MUSCUL OSKELE NAYA STRUCT URES: Degene rative change s of the lumbar spine are noted. Anteri or abdomi nal wall is normal . FINDIN GS ON CT PELVIS : PELVIC CAVITY : Urinar y bladde r and rectos igmoid are normal . Uterus is atroph ic in keepin g with the patien t's age. Ovarie s are not visual ized. No pelvic or inguin al lympha denopa thy, mass or fluid. MUSCUL OSKELE NAYA STRUCT URES: Normal . COMBIN ED IMPRES CHIKA: No CT eviden ce of neopla stic recurr ence in the chest, abdome n or pelvis . A few small stable lymph nodes in the retrop eriton eum. Interp reted By: Katherine Wilburn MD Electr onical ly Signed By: Katherine Wilburn MD on 019 10:[address] Radiology [address], [address], 05/20/2018 12:15:09 07/03/19 20 07/03/2019 CT, chest + abdom en + pelvi s, w/ contr ast [address] [address] Patien t Name: RENNY figueroa : [phone] Patien t Orderi ng Provid er: [facility]MI [facility] EXAM DATE: 2019 EXAM: CT C/A/P WITH CONTRA ST CLINIC AL INFORM ATION: Lympho ma TECHNI QUE: Multip le axial CT images of the chest, abdome n and pelvis were obtain ed after inject ion of 100 mL Optira y 320 (1 x 150 mL bottle of [facility] [id number] [id number] ). 50 mL was wasted and discar ded. Bowel was opacif ied with oral contra st. COMPAR NEISHA: [address] CHEST: AIRWAY S AND LUNGS: Trache a, princi pal bronch i and major bronch ial branch es are patent and normal . Lungs are clear. MEDIAS TINUM: No medias tinal lympha denopa thy. Aorta, SVC, pulmon kerwin arteri es, pulmon kerwin veins and their major branch es and tribut carolyn are normal . No gross cardia c abnorm ality. PLEURA AND CHEST WALL: No pleura l effusi on or mass. No chest wall abnorm ality. FINDIN GS ON CT ABDOME N: UPPER ABDOMI NAL ORGANS : Liver, spleen , pancre as, adrena ls and both kidney s are normal . Gallbl adder absent BOWEL AND MESENT LUZ: Stomac h, small bowel and colon are normal . No mesent nereida lympha denopa thy or perito althea free fluid. RETROP ERITON EUM: Aorta, IVC and their branch es are patent and normal . Subcen timete r shotty retrop eriton eal nodes are again noted which are stable . ABDOMI NAL WALL AND SKELET AL STRUCT URES: Normal . FINDIN GS ON CT PELVIS : PELVIC CAVITY : Urinar y bladde r and rectos igmoid are normal . Uterus unrema rkable . No pelvic or inguin al lympha denopa thy, mass or fluid. MUSCUL OSKELE NAYA STRUCT URES: Normal . COMBIN ED IMPRES CHIKA: Exam is stable . No indica tion of new adenop athy involv ing the chest, abdome n, and pelvis Interp reted By: Rigoberto Busch MD Electr onical ly Signed By: Rigoberto Busch MD on 020 10:05 AM INTERFACE [facility] Radiology [facility] [address] [place] [address], [phone], 07/03/2019 10:10:48 Result Notes None recorded. 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 NATALIE COLE MD [facility] [place], [address], [facility] 8 14:24:47 Vitamin B12 deficien cy (non anemic) 81448764 Active 2017 NATALIE COLE MD [facility] [place], [address], [facility] 8 09:34:43 Non-Hodg kin's lymphoma (clinica l) 724465672 Completed 201511/05/2017 Provider: Diamond Cole: Active NATALIE COLE MD [address] [place], [address], [facility] 8 09:31:06 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 Medical Equipment None Reported. Allergies Allergen ID Allergen Name Allergen Category Reaction Reaction Severity Criticality Documentation Date Start Date Code Code System Note Provider Name and Address Organization Details Recorded Time 962650 amoxicill in trihydrat e medicatio n other Not available Not available 02/04/20162013 23061 8 RxNorm React ion: COLEMAN Brooks nt: Creat ed By: Daren Carrillo ed Date: 2013 1:09: 11 PM; Not Available [facility] 6 08:54:11 Medications Name Sig Start Date Stop Date Status Note LastModified by Organization Details LastModified Time prednison e 10 mg tablet active Not Available Not Available Not Available doxycycli ne hyclate 100 mg capsule active Not Available Not Available Not Available atorvasta tin 20 mg tablet active Not Available Not Available Not Available albuterol sulfate 2.5 mg/3 mL (0.083 %) solution for nebulizat ion USE 1 VIAL IN NEBULIZE R EVERY 6 HOURS NEEDED active Not Available Not Available No t Available azithromy polo 250 mg tablet TAKE 1 TABLET BY MOUTH ONCE DAILY FOR 4 DAYS active Not Available Not Available No t Available fluconazo le 150 mg tablet 11/24 completed Not Available Not Available Not Available citalopra m 10 mg tablet 05/28 completed Not Available Not Available Not Available ketotifen 0.025 % (0.035 %) eye drops active Not Available Not Available No t Available ranitidin e 300 mg tablet active Not Available Not Available Not Available sucralfat e 1 gram tablet Four times a day active Not Available Not Available No t Available famotidin e 40 mg tablet active Not Available Not Available Not Available diphenoxy late-atro pine 2.5 mg-0.025 mg tablet 11/05 completed Not Available Not Available Not Available sulfameth oxazole 800 mg-trimet hoprim 160 mg tablet active Not Available Not Available Not Available omeprazol e 40 mg capsule,d elayed release TAKE 1 CAPSULE BY MOUTH ONCE DAILY active Not Available Not Available No t Available ondansetr on 8 mg disintegr ating tablet 05/28 completed Not Available Not Available Not Available prednison e 10 mg tablets in a dose pack USE DIRECTED active Not Available Not Available No t Available baclofen 10 mg tablet 11/24 completed Not Available Not Available Not Available benzonata te 100 mg capsule 05/28 completed Not Available Not Available Not Available doxycycli ne monohydra te 100 mg capsule active Not Available Not Available Not Available hydrocodo ne 7.5 mg-acetam inophen 325 mg tablet 11/24 completed Not Available Not Available Not Available cephalexi n 500 mg capsule active Not Available Not Available Not Available cyanocoba bernadette (vit B-12) 1,000 mcg/mL injection solution active Not Available Not Available Not Available ranitidin e 150 mg tablet 11/05 completed Not Available Not Available Not Available ranitidin e 300 mg capsule TAKE 1 CAPSULE BY MOUTH TWICE DAILY active Not Available Not Available No t Available promethaz ine 25 mg tablet 11/24 completed Not Available Not Available Not Available monteluka st 10 mg tablet TAKE 1 TABLET BY MOUTH IN THE EVENING active Not Available Not Available No t Available ranitidin e 150 mg capsule TAKE 1 CAPSULE (300 MG) BY ORAL ROUTE 2 TIMES PER DAY active Not Available Not Available No t Available mupirocin 2 % topical ointment active Not Available Not Available Not Available azelastin e 137 mcg (0.1 %) nasal spray USE 2 SPRAY(S) IN EACH NOSTRIL TWICE DAILY active Not Available Not Available No t Available levofloxa polo 500 mg tablet active Not Available Not Available No t Available ondansetr on 4 mg disintegr ating tablet 05/28 completed Not Available Not Available Not Available cefdinir 300 mg capsule active Not Available Not Available Not Available fluticaso ne propionat e 50 mcg/actua tion nasal spray,adnrew pension 11/24 completed Not Available Not Available Not Available ipratropi um bromide 21 mcg (0.03 %) nasal spray active Not Available Not Available Not Available loratadin e 10 mg tablet active Not Available Not Available Not Available Ventolin HFA 90 mcg/actua tion aerosol inhaler active Not Available Not Available Not Available oxycodone 5 mg tablet 05/28 completed Not Available Not Available Not Available neomycin- polymyxin -hydrocor t 3.5 mg-10,000 unit/mL-1 % ear drops,andrew p active Not Available Not Available Not Available Prilosec OTC 20 mg tablet,de layed release Take every day by oral route. active Not Available Not Available No t Available nitrofura ntoin monohydra te/macroc rystals 100 mg capsule active Not Available Not Available Not Available lactulose 10 gram/15 mL oral solution 11/24 completed Not Available Not Available Not Available Boostrix Tdap 2.5 Lf unit-8 mcg-5 Lf/0.5 mL intramusc ular syringe active Not Available Not Available Not Available omeprazol e 40mg active Not Available Not Available Not Available Vaqta (PF) 50 unit/mL intramusc ular syringe active Not Available Not Available Not Available Linzess 145 mcg capsule Daily 11/24 completed Frequenc y: daily;Me dication Descript ion: linaclot alfredo; Dosage:1 ; Route:or al; refills: 12; Quantity :30 capsule Not Available Not Available Not Available Creon 36,000 unit-114, 000 unit-180, 000 unit capsule,d elayed release TAKE 1 CAPSULE BY MOUTH THREE TIMES DAILY active Not Available Not Available No t Available Shingrix (PF) 50 mcg/0.5 mL intramusc ular suspensio n, kit active Not Available Not Available Not Available Vitals Date Recorded Body height Body mass index (BMI) Body weight Body temperature Heart rate Systolic blood pressure Diastolic blood pressure Provider Name and Address Organization Details Last Updated DateTime 9 157.48 cm 32.3 kg/m2 79657.0 5 g 97.4 [degF] 66 /min 108 mm[Hg] 70 mm[Hg] Titus Chu [facility] 9 11:35:34 Date Recorded Body height Body mass index (BMI) Body weight Body temperature Heart rate Systolic blood pressure Diastolic blood pressure Provider Name and Address Organization Details Last Updated DateTime 8 157.48 cm 30.9 kg/m2 73027.1 1 g 97.9 [degF] 73 /min 104 mm[Hg] 77 mm[Hg] Arianna Ariel [facility] 8 14:04:29 Date Recorded Body height Body mass index (BMI) Body weight Body temperature Heart rate Systolic blood pressure Diastolic blood pressure Provider Name and Address Organization Details Last Updated DateTime 7 157.48 cm 30.5 kg/m2 40508.9 3 g 97.1 [degF] 85 /min 106 mm[Hg] 71 mm[Hg] Cira Hoffmann [facility] 7 15:42:59 Date Recorded Body height Body mass index (BMI) Body weight Body temperature Heart rate Systolic blood pressure Diastolic blood pressure Provider Name and Address Organization Details Last Updated DateTime 8 157.48 cm 31.7 kg/m2 04616.2 8 g 97.8 [degF] 58 /min 120 mm[Hg] 76 mm[Hg] Amee Arvizu [facility] 8 08:58:00 Date Recorded Body height Body mass index (BMI) Body weight Body temperature Heart rate Systolic blood pressure Diastolic blood pressure Provider Name and Address Organization Details Last Updated DateTime 7 157.48 cm 29.7 kg/m2 38008.1 2 g 97.6 [degF] 74 /min 118 mm[Hg] 72 mm[Hg] Luis restrepo [facility] 7 13:46:22 Social History Question Answer Notes LastModified by Organizat ion Details LastModified Time Tobacco Smoking Status Never Smoker Luis tobar [facility] 11/24/2016 13:45:22 Live Alone Or With Others? With Others [email or web address] Information not available 11/24/2016 Marital Status [email or web address] Informatio n not available 11/24/2016 What Was The Date Of Your Most Recent Tobacco Screening? 05/20/2018 Information n ot available 04/29/2019 Sex: Unknown Functional Status Question Answer Note LastModified by Organization D etails LastModified Time What is your level of alcohol consumption? None [email or web address] Information not available 11/24/2016 Mental Status None recorded. Family History Nothing Reported. Medical History No medical history recorded. Gynecological HistoryNo gynecological history recorded. Obstetrics History GPAL:G 0 P 0 0 0 0 Past Encounters Encounter ID Performer Location Encounter Start Date Encounter Closed Date Diagnosis/Indication Diagnosis SNOMED-CT Code Diagnosis ICD10 Code Diagnosis Note [id number] NATALIE COLE MD [facility] [address],[place] [address] 05/18/2016 13:32:58 05/18/2016 14:40:12 Follicular lymphoma 335167627 C82.90 [id number] NATALIE COLE MD [facility] [address],[place] [address] 08/24/2016 15:29:18 08/25/2016 08:47:54 Follicular lymphoma 120188437 C82.90 [id number] NATALIE COLE MD [facility] [address],[place] [address] 11/24/2016 13:20:20 11/27/2016 08:05:01 Follicular lymphoma 212795302 C82.90 [id number] NATALIE COLE MD [facility] [address],[place] [address] 05/28/2017 13:58:01 05/28/2017 14:38:04 Follicular lymphoma 699066953 C82.90 [id number] NATALIE COLE MD [facility] [address],[place] [address] 11/05/2017 08:47:41 11/05/2017 09:52:00 Follicular lymphoma 759699443 C82.90 Vitamin B1 2 deficiency (non anemic) 95825176 E53.8 [id number] NATALIE COLE MD [facility] [address],[place] [address] 05/20/2018 11:00:26 05/20/2018 12:28:05 Follicular lymphoma 162350851 C82.90 [id number] NATALIE COLE MD [facility] [address] [place] [address] 11/25/2018 08:59:22 11/25/2018 10:19:49 [id number] NOHEMI ANNE MD [facility] [address] [place] [address] 07/03/2019 11:49:23 07/03/2019 14:05:29 [id number] NOHEMI ANNE MD [facility] [address] [place] [address] 08/20/2019 12:50:16 08/20/2019 14:45:21 [id number] NOHEMI ANNE MD [facility] [address] [place] [address] 02/11/2020 14:34:47 02/11/2020 16:56:53 Health Concerns Section Related Observation LastModified by Organization Detai ls LastModified Time None Recorded Concern Status LastModified by Organization Details LastModified Time None Recorded Advance Directives Directive None Recorded Payers Insurance Date Sequence Insurance Name Policy Number Policy Sams Covered Member ID Sams Member ID Guarantor Name 02/07/2021 1 [employer] [id number] Andres Montemayor [id number] Renny Montemayor 02/04/2020 1 [employer] [place] [employer] [place] (MEDICA[place]AC[place] - H[place]) CS[place] Rennylona Montemayor [id number] Rennylona Montemayor 05/23/2018 1 *SELF PAY* Th sirena Terri Montemayor 07/14/2020 PAYMENT PLAN Rennylona Montemayor 03/06/2024 1 [place] [id number] Rennylona Montemayor [id number] Rennylona Montemayor 03/06/2024 2 [employer] [place] ([place] HMO) Rennylona Montemayor [id number] Rennylona Montemayor 10/25/2022 1 [employer] [place] Rennylona Montemayor [id number] Renny Montemayor Notes Date Note Type Note Provider Name and Address Organization Details Recorded Time 08/24/2016 text/html Ms. Montemayor is in for follow up of follicular non-Hodgkin's lymphoma. She had extensive disease in the time of diagnosis and was treated with Treanda/Rituxan. She completed 4 cycles of this with the last 2 planned cycles aborted due to prolonged cytopenias. She has had a complete radiographic response, however. She is almost 3 years out from completing chemotherapy and there have been no evidence of recurrence of disease until 6 months ago when retroperitoneal lymph nodes had increased to 4.4 cm in size. There were no other sites of disease and she was asymptomatic. Serologies were unremarkable and it was elected to follow with observation only. CAT scans 3 months ago revealed some regression in the retroperitoneal lymph nodes and no new disease. Since that time, there is been no evidence lymphadenopathy or significant medical problems though she has had a cold recently. She has started working at a daycare. NATALIE COLE MD [address] [place] [address], [phone], [facility] 08/24/2016 16:35:45 11/24/2016 text/html Ms. Montemayor is in for follow up of follicular non-Hodgkin's lymphoma. She had extensive disease in the time of diagnosis and was treated with Treanda/Rituxan. She completed 4 cycles of this with the last 2 planned cycles aborted due to prolonged cytopenias. She has had a complete radiographic response, however. She is almost 3.5 years out from completing chemotherapy and there have been no evidence of recurrence aside from some mild retroperitoneal lymphadenopathy. She is in today with repeat examination, lab work and CAT scans. There has been no new peripheral lymphadenopathy. She has noted some easy bruising since I saw her last. NATALIE COLE MD [address] [place] [address], [address], [facility] 11/24/2016 14:20:46 05/28/2017 text/html Ms. Montemayor is in for follow up of follicular non-Hodgkin's lymphoma. She had extensive disease in the time of diagnosis and was treated with Treanda/Rituxan. She completed 4 cycles of this with the last 2 planned cycles aborted due to prolonged cytopenias. She has had a complete radiographic response, however. She is almost 4 years out from completing chemotherapy and most recently there has been some slight regrowth of retroperitoneal lymph nodes. These have not been very large and are asymptomatic so we have followed with observation only. Most recent imaging was 6 months ago. There has been no new peripheral lymphadenopathy. She states, I feel great! Today, she has had lab work and was to have repeat CAT scan but for unclear reasons this was not scheduled. [place], [address], [facility] 05/28/2017 14:27:07 11/05/2017 text/html Ms. Montemayor is in for follow up of follicular non-Hodgkin's lymphoma. She had extensive disease in the time of diagnosis and was treated with Treanda/Rituxan. She completed 4 cycles of this with the last 2 planned cycles aborted due to prolonged cytopenias. She has had a complete radiographic response, however. She is almost 4 years out from completing chemotherapy and most recently there has been some slight regrowth of retroperitoneal lymph nodes. These have not been very large and are asymptomatic so we have followed with observation only. Most recent imaging was 5 months ago. There has been no new peripheral lymphadenopathy. She does state that she was diagnosed B12 deficiency by her primary care phyician several weeks ago and was started on shots weekly with a total 5 out of 8 given. She then was going to move to monthly shots. She has had an increase in her GERD symptoms and is to undergo EGD in early November. She is not aware of any new lymphadenopathy. [place], [address], [facility] 11/05/2017 10:01:54 05/20/2018 text/html Ms. Montemayor is in for follow up of follicular non-Hodgkin's lymphoma. She had extensive disease in the time of diagnosis and was treated with Treanda/Rituxan. She completed 4 cycles of this with the last 2 planned cycles aborted due to prolonged cytopenias. She has had a complete radiographic response, however. She is almost 5 years out from completing chemotherapy and most recently there has been some slight regrowth of retroperitoneal lymph nodes. These have not been very large and are asymptomatic so we have followed with observation only. Most recent imaging was 1 year ago. There has been no new peripheral lymphadenopathy. She does state that she has been diagnosed with gastroparesis since I saw her last. She also had a pneumonia treated as an outpatient. MD Esthela GREENFIELD, [place], [address], [place] [facility] 05/20/2018 12:22:51 OBGyn Episode No OBEpisode recorded.
--- OUTSIDE RECORDS SUMMARY | 2024-08-21 15:09 | XMS_ITS | Data Portability ---
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 She is doing well clinically and serologically without evidence of progression of disease. Therefore, we will continue to follow her with observation only to include return to clinic in 6 months with examination, lab work and imaging. She voiced understanding and agreement with the above. I have asked her to let me know if any questions or concerns at any time. [email or web address] Not available 11/25/2018 09:38:10 07/03/2019 07/03/2019 Ms. Montemayor has n o evidence of lymphoma recurrence on CT scans of chest, abdomen, and pelvis done today. Again noted are a few subcentimeter retroperitoneal nodes, stable. Labs look good. She would like to continue follow-up with a physical exam; she'll be rescheduled for a visit in a couple of months, but understands that depending on the coronavirus situation this might be rescheduled also. 6 minutes 15 seconds spent on telephone with the patient, 10 minutes spent reviewing results/records. Not available 07/03/2019 17:37:12 08/20/2019 08/20/2019 Ms. Montemayor is doing well, with no evidence of lymphoma. She was reassured that she is not considered significantly immune compromised this far out from her chemotherapy, and that there are no greater restrictions on her returning to work than for anyone else in the general population. I'll see her in January, then next June with CTs. Medications were renewed. Not available 08/24/2019 12:37:36 02/11/2020 02/11/2020 Ms. Montemayor is doing well, now over 6.5 years out from diagnosis of follicular lymphoma, with no evidence of recurrence. CBC, CMP, and LDH are normal. We discussed that her follicular lymphoma may recur, but it is also possible that it will never recur. I'll see her in 1 year, with labs. Not available 02/15/2020 15:43:13 Plan of Treatment Reminders Order Date Submit Date Provider Last Modified By Organization Details Last Modified Time Details Appointments None recorded. Lab None recorded. Referral None recorded. Procedures None recorded. Surgeries None recorded. Imaging None recorded. Medication Orders Creon 36,000 unit-114,0 00 unit-180,0 00 unit capsule,de layed release 2019 020 INTERFACE [facility], [address], [place], [address], 0 14:41:08 omeprazole 40 mg capsule,de layed release 2019 020 INTERFACE [facility], [address], [place], [address], 0 14:41:14 Patient TargetsNo targets recorded. Patient InstructionsNo instructions recorded. Reason for Referral None Reported. Results Created Date Observation Date Name Description Value Unit Range Abnormal Flag Note LastModifiedBy Organization Detail LastModifiedTime 11/26/19 19 11/25/2018 CBC w/ auto diff white blood cells 8.5 K/uL 3.8-10 .8 normal Not Available [facility] [address] [place] [address], [address], 11/25/2018 08:47:59 11/26/19 19 11/25/2018 CBC w/ auto diff red blood cells 4.31 M/uL 3.80-5 .20 normal Not Available [facility] [address] [place], [address], 11/25/2018 08:47:59 11/26/1911/25/2018 CBC w/ auto diff hemoglobin 13.9 g/dL 12.0-1 6.0 normal Not Available [facility] [address] [place] [address], [address], 11/25/2018 08:47:59 11/26/1911/25/2018 CBC w/ auto diff hematocrit 39.1 % 35.0-4 7.0 normal Not Available [facility] [address] [place] [address], [address], 11/25/2018 08:47:59 11/26/1911/25/2018 CBC w/ auto diff MCV 91 fL 80-100 normal Not Available [facility] [address] [place] [address], [address], 11/25/2018 08:47:59 11/26/1911/25/2018 CBC w/ auto diff MCH 32 pg 26-35 normal Not Available [facility] [address] [place] [address], [address], 11/25/2018 08:47:59 11/26/1911/25/2018 CBC w/ auto diff MCHC 36 g/dL 32-36 normal Not Available [facility] [address] [place] [address], [address], 11/25/2018 08:47:59 11/26/1911/25/2018 CBC w/ auto diff RDW 13.9 % 11.0-1 5.0 normal Not Available [facility] [address] [place] [address], [address], 11/25/2018 08:47:59 11/26/1911/25/2018 CBC w/ auto diff MPV 8.1 fL 6.2-10 .5 normal Not Available [facility] [address] [place], [address], 11/25/2018 08:47:59 11/26/1911/25/2018 CBC w/ auto diff platelet count 244 K/uL 130-40 0 normal Not Available [facility] [address] [place] [address], [address], 11/25/2018 08:47:59 11/26/1911/25/2018 CBC w/ auto diff neutrophil,a bsolute 6.1 K/uL 1.6-8. 4 normal Not Available [facility] [address] [place] [address], [address], 11/25/2018 08:47:59 11/26/1911/25/2018 CBC w/ auto diff lymphocyte,a bsolute 1.5 K/uL 0.4-5. 1 normal Not Available [facility] [address] [place] [address], [address], 11/25/2018 08:47:59 11/26/1911/25/2018 CBC w/ auto diff monocyte,abs olute 0.7 K/uL 0.0-1. 2 normal Not Available [facility] [address] [place] [address], [address], 11/25/2018 08:47:59 11/26/1911/25/2018 CBC w/ auto diff eosinophil,a bsolute 0.1 K/uL 0.0-0. 8 normal Not Available [facility] [address] [place] [address], [address], 11/25/2018 08:47:59 11/26/1911/25/2018 CBC w/ auto diff basophil,abs olute 0.1 K/uL 0.0-0. 3 normal Not Available [facility] [address] [place] [address], [address], 11/25/2018 08:47:59 11/26/1911/25/2018 CBC w/ auto diff % neutrophils 71.6 % 42.0-7 8.0 normal Not Available [facility] [address] [place] [address], [address], 11/25/2018 08:47:59 11/26/1911/25/2018 CBC w/ auto diff % lymphocytes 17.7 % 11.0-4 7.0 normal Not Available [facility] [address] [place] [address], [address], 11/25/2018 08:47:59 11/26/1911/25/2018 CBC w/ auto diff % monocytes 8.6 % 0.0-11 .0 normal Not Available [facility] [address] [place] [address], [address], 11/25/2018 08:47:59 11/26/1911/25/2018 CBC w/ auto diff % eosinophils 1.3 % 0.0-7. 0 normal Not Available [facility] [address] [place] [address], [address], 11/25/2018 08:47:59 11/26/1911/25/2018 CBC w/ auto diff % basophils 0.8 % 0.0-3. 0 normal Not Available [facility] [address] [place] [address], [address], 11/25/2018 08:47:59 11/26/1911/25/2018 CBC w/ auto diff nucleated red cells 0.1 % 0.0-0. 9 normal Not Available [facility] [address] [place] [address], [address], 11/25/2018 08:47:59 11/26/1911/25/2018 CBC w/ auto diff nucleated RBCs, absolute 0.01 K/uL not estab. normal Not Available [facility] [address] [place] [address], [address], 11/25/2018 08:47:59 11/26/1911/25/2018 CMP, serum or plasm a glucose 105 mg/dL 74-100 high Not Available [facility] [address] [place] [address], [address], 11/25/2018 09:16:29 11/26/19 19 11/25/2018 CMP, serum or plasm a blood urea nitrogen 20 mg/dL 6-20 normal Not Available [facility] [address] [place] [address], [address], 11/25/2018 09:16:29 11/26/1911/25/2018 CMP, serum or plasm a creatinine 0.76 mg/dL 0.50-0 .95 normal Not Available [facility] [address] [place] [address], [address], 11/25/2018 09:16:29 11/26/1911/25/2018 CMP, serum or plasm a BUN/creatini ne ratio 26 (calc ) 10-20 high Not Available [facility] [address] [place] [address], [address], 11/25/2018 09:16:29 11/26/19 19 11/25/2018 CMP, serum or plasm a sodium 139 mmol/ L 136-14 5 normal Not Available [facility] [address] [place] [address], [address], 11/25/2018 09:16:29 11/26/1911/25/2018 CMP, serum or plasm a potassium 4.4 mmol/ L 3.4-5. 0 normal Not Available [facility] [address] [place] [address], [address], 11/25/2018 09:16:29 11/26/1911/25/2018 CMP, serum or plasm a chloride 106 mmol/ L 98-107 normal Not Available [facility] [address] [place] [address], [address], 11/25/2018 09:16:29 11/26/19 19 11/25/2018 CMP, serum or plasm a carbon dioxide 20 mmol/ L 20-32 normal Not Available [facility] [address] [place] [address], [address], 11/25/2018 09:16:29 11/26/19 19 11/25/2018 CMP, serum or plasm a anion gap 13 (calc ) 7-25 normal Not Available [facility] [address] [place] [address], [address], 11/25/2018 09:16:29 11/26/1911/25/2018 CMP, serum or plasm a calcium 9.4 mg/dL 8.6-10 .2 normal Not Available [facility] [address] [place] [address], [address], 11/25/2018 09:16:29 11/26/1911/25/2018 CMP, serum or plasm a total protein 6.8 g/dL 6.4-8. 3 normal Not Available [facility] [address] [place] [address], [address], 11/25/2018 09:16:29 11/26/1911/25/2018 CMP, serum or plasm a albumin 4.3 g/dL 3.5-5. 2 normal Not Available [facility] [address] [place] [address], [address], 11/25/2018 09:16:29 11/26/1911/25/2018 CMP, serum or plasm a globulin 2.5 g/dL_ (calc ) 1.5-4. 5 normal Not Available [facility] [address] [place] [address], [address], 11/25/2018 09:16:29 11/26/1911/25/2018 CMP, serum or plasm a albumin/glob ulin ratio 1.7 (calc ) 1.1-2. 5 normal Not Available [facility] [address] [place] [address], [address], 11/25/2018 09:16:29 11/26/1911/25/2018 CMP, serum or plasm a bilirubin, total 0.3 mg/dL 0.1-1. 2 normal Not Available [facility] [address] [place], [address], 11/25/2018 09:16:29 11/26/1911/25/2018 CMP, serum or plasm a alkaline phosphatase 64 U/L 35-105 normal Not Available [facility] [address] [place], [address], 11/25/2018 09:16:29 11/26/1911/25/2018 CMP, serum or plasm a AST 17 U/L 0-32 normal Not Available [facility] [address] [place], [address], 11/25/2018 09:16:29 11/26/1911/25/2018 CMP, serum or plasm a ALT 14 U/L 0-33 normal Not Available [facility] [address] [place] [address], [address], 11/25/2018 09:16:29 11/26/1911/25/2018 CMP, serum or plasm a GFR 102 >= 60 normal Not Available [facility] [address] [place], [address], 11/25/2018 09:16:29 11/26/1911/25/2018 CMP, serum or plasm [...] month s or longe r. Not Available [facility] [address] [place], [address], 11/25/2018 09:16:29 11/26/19 19 11/25/2018 uric acid, serum or plasm a uric acid 4.1 mg/dL 2.4-5. 7 normal Not Available [facility] [address] [place] [address], [address], 11/25/2018 09:16:30 11/26/19 19 11/26/2018 ldh, serum or plasm a LDH, quest 197 U/L 120-25 0 normal TEST PERFO RMED AT: [facility] [address] [place] [address] JUDD SANTIZO M.D. Not Available [facility] [address] [place] [address], [address], 11/26/2018 07:15:16 07/03/19 20 07/03/2019 CBC w/ auto diff white blood cells 5.4 K/uL 3.8-10 .8 normal Not Available [facility] [address] [place] [address], [address], 07/03/2019 08:40:59 07/03/1907/03/2019 CBC w/ auto diff red blood cells 4.35 M/uL 3.80-5 .20 normal Not Available [facility] [address] [place] [address], [address], 07/03/2019 08:40:59 07/03/1907/03/2019 CBC w/ auto diff hemoglobin 14.0 g/dL 12.0-1 6.0 normal Not Available [facility] [address] [place] [address], [address], 07/03/2019 08:40:59 07/03/1907/03/2019 CBC w/ auto diff hematocrit 39.3 % 35.0-4 7.0 normal Not Available [facility] [address] [place] [address], [address], 07/03/2019 08:40:59 07/03/1907/03/2019 CBC w/ auto diff MCV 90 fL 80-100 normal Not Available [facility] [address] [place] [address], [address], 07/03/2019 08:40:59 07/03/19 20 07/03/2019 CBC w/ auto diff MCH 32 pg 26-35 normal Not Available [facility] [address] [place] [address], [address], 07/03/2019 08:40:59 07/03/19 20 07/03/2019 CBC w/ auto diff MCHC 36 g/dL 32-36 normal Not Available [facility] [address] [place] [address], [address], 07/03/2019 08:40:59 07/03/19 20 07/03/2019 CBC w/ auto diff RDW 13.4 % 11.0-1 5.0 normal Not Available [facility] [address] [place] [address], [address], 07/03/2019 08:40:59 07/03/19 20 07/03/2019 CBC w/ auto diff MPV 8.2 fL 6.2-10 .5 normal Not Available [facility] [address] [place] [address], [address], 07/03/2019 08:40:59 07/03/19 20 07/03/2019 CBC w/ auto diff platelet count 181 K/uL 130-40 0 normal Not Available [facility] [address] [place] [address], [address], 07/03/2019 08:40:59 07/03/19 20 07/03/2019 CBC w/ auto diff neutrophil,a bsolute 3.2 K/uL 1.6-8. 4 normal Not Available [facility] [address] [place] [address], [address], 07/03/2019 08:40:59 07/03/19 20 07/03/2019 CBC w/ auto diff lymphocyte,a bsolute 1.4 K/uL 0.4-5. 1 normal Not Available [facility] [address] [place] [address], [address], 07/03/2019 08:40:59 07/03/19 20 07/03/2019 CBC w/ auto diff monocyte,abs olute 0.6 K/uL 0.0-1. 2 normal Not Available [facility] [address] [place] [address], [address], 07/03/2019 08:40:59 07/03/19 20 07/03/2019 CBC w/ auto diff eosinophil,a bsolute 0.2 K/uL 0.0-0. 8 normal Not Available [facility] [address] [place] [address], [address], 07/03/2019 08:40:59 07/03/19 20 07/03/2019 CBC w/ auto diff basophil,abs olute 0.1 K/uL 0.0-0. 3 normal Not Available [facility] [address] [place] [address], [address], 07/03/2019 08:40:59 07/03/19 20 07/03/2019 CBC w/ auto diff % neutrophils 59.0 % 42.0-7 8.0 normal Not Available [facility] [address] [place] [address], [address], 07/03/2019 08:40:59 07/03/19 20 07/03/2019 CBC w/ auto diff % lymphocytes 26.1 % 11.0-4 7.0 normal Not Available [facility] [address] [place] [address], [address], 07/03/2019 08:40:59 07/03/19 20 07/03/2019 CBC w/ auto diff % monocytes 10.8 % 0.0-11 .0 normal Not Available [facility] [address] [place] [address], [address], 07/03/2019 08:40:59 07/03/19 20 07/03/2019 CBC w/ auto diff % eosinophils 2.8 % 0.0-7. 0 normal Not Available [facility] [address] [place] [address], [address], 07/03/2019 08:40:59 07/03/19 20 07/03/2019 CBC w/ auto diff % basophils 1.3 % 0.0-3. 0 normal Not Available [facility] [address] [place] [address], [address], 07/03/2019 08:40:59 07/03/19 20 07/03/2019 CBC w/ auto diff nucleated red cells 0.0 % 0.0-0. 9 normal Not Available [facility] [address] [place] [address], [address], 07/03/2019 08:40:59 07/03/19 20 07/03/2019 CBC w/ auto diff nucleated RBCs, absolute 0.00 K/uL not estab. normal Not Available [facility] [address] [place] [address], [address], 07/03/2019 08:40:59 07/03/1907/03/2019 ldh, serum or plasm a LDH 211 U/L 135-21 4 normal Not Available [facility] [address] [place] [address], [address], 07/03/2019 09:19:37 07/03/19 20 07/03/2019 uric acid, serum or plasm a uric acid 4.8 mg/dL 2.4-5. 7 normal Not Available [facility] [address] [place] [address], [address], 07/03/2019 09:50:57 07/03/19 20 07/03/2019 CMP, serum or plasm a glucose 104 mg/dL 74-100 high Not Available [facility] [address] [place] [address], [address], 07/03/2019 09:50:59 07/03/19 20 07/03/2019 CMP, serum or plasm a blood urea nitrogen 23 mg/dL 6-20 high Not Available [facility] [address] [place] [address], [address], 07/03/2019 09:50:59 07/03/19 20 07/03/2019 CMP, serum or plasm a creatinine 0.80 mg/dL 0.50-0 .95 normal Not Available [facility] [address] [place] [address], [address], 07/03/2019 09:50:59 07/03/19 20 07/03/2019 CMP, serum or plasm a BUN/creatini ne ratio 29 (calc ) 10-20 high Not Available [facility] [address] [place] [address], [address], 07/03/2019 09:50:59 07/03/19 20 07/03/2019 CMP, serum or plasm a sodium 144 mmol/ L 136-14 5 normal Not Available [facility] [address] [place] [address], [address], 07/03/2019 09:50:59 07/03/19 20 07/03/2019 CMP, serum or plasm a potassium 4.4 mmol/ L 3.4-5. 0 normal Not Available [facility] [address] [place] [address], [address], 07/03/2019 09:50:59 07/03/19 20 07/03/2019 CMP, serum or plasm a chloride 105 mmol/ L 98-107 normal Not Available [facility] [address] [place] [address], [address], 07/03/2019 09:50:59 07/03/1907/03/2019 CMP, serum or plasm a carbon dioxide 26 mmol/ L 20-32 normal Not Available [facility] [address] [place] [address], [address], 07/03/2019 09:50:59 07/03/19 20 07/03/2019 CMP, serum or plasm a anion gap 13 (calc ) 7-25 normal Not Available [facility] [address] [place] [address], [address], 07/03/2019 09:50:59 07/03/1907/03/2019 CMP, serum or plasm a calcium 9.3 mg/dL 8.6-10 .2 normal Not Available [facility] [address] [place] [address], [address], 07/03/2019 09:50:59 07/03/1907/03/2019 CMP, serum or plasm a total protein 6.5 g/dL 6.4-8. 3 normal Not Available [facility] [address] [place] [address], [address], 07/03/2019 09:50:59 07/03/1907/03/2019 CMP, serum or plasm a albumin 4.1 g/dL 3.5-5. 2 normal Not Available [facility] [address] [place] [address], [address], 07/03/2019 09:50:59 07/03/1907/03/2019 CMP, serum or plasm a globulin 2.4 g/dL_ (calc ) 1.5-4. 5 normal Not Available [facility] [address] [place] [address], [address], 07/03/2019 09:50:59 07/03/1907/03/2019 CMP, serum or plasm a albumin/glob ulin ratio 1.7 (calc ) 1.1-2. 5 normal Not Available [facility] [address] [place] [address], [address], 07/03/2019 09:50:59 07/03/1907/03/2019 CMP, serum or plasm a bilirubin, total 0.3 mg/dL 0.1-1. 2 normal Not Available [facility] [address] [place] [address], [address], 07/03/2019 09:50:59 07/03/19 20 07/03/2019 CMP, serum or plasm a alkaline phosphatase 64 U/L 35-105 normal Not Available [facility] [address] [place] [address], [address], 07/03/2019 09:50:59 07/03/19 20 07/03/2019 CMP, serum or plasm a AST 19 U/L 0-32 normal Not Available [facility] [address] [place] [address], [address], 07/03/2019 09:50:59 07/03/19 20 07/03/2019 CMP, serum or plasm a ALT 17 U/L 0-33 normal Not Available [facility] [address] [place] [address], [address], 07/03/2019 09:50:59 07/03/19 20 07/03/2019 CMP, serum or plasm a GFR 95 >= 60 normal Not Available [facility] [address] [place] [address], [address], 07/03/2019 09:50:59 07/03/1907/03/2019 CMP, serum or plasm a GFR non- [...] month s or longe r. Not Available [facility] [place], [address], 07/03/2019 09:50:59 07/03/19 20 07/03/2019 CT, chest + abdom en + pelvi s, w/ contr ast [facility] [address] [facility] [place] [address] Patien t Name: RENNY Sethi t : 961 Patien t Orderi pavel Ortega er: NOHEMI ANNE EXAM DATE: 2019 EXAM: CT C/A/P WITH CONTRA [facility] AL INFORM ATION: Lympho ma TECHNI QUE: Multip le axial CT images of the chest, abdome n and pelvis were obtain ed after inject ion of 100 mL Optira y 320 (1 x 150 mL bottle of NDC 0019-1 323-16 ). 50 mL was wasted [...] Rigoberto Busch MD on 020 10:05 AM [facility] [address] [place], [address], 07/03/2019 13:52:53 Result Notes None recorded. Problems Name Problem SNOMED Code Status Onset Date Resolution Date Notes Provider Name and Address Organization Details Recorded Time Follicular lymphoma 760716470 Active 019 Veronica Olivera [facility] 9 09:34:34 Follicular lymphoma 745428987 Active 019 [place] [address] [place] [address], [phone], [facility] 9 09:38:18 Problem Notes None recorded. Medical Equipment None Reported. Allergies Allergen ID Allergen Name Allergen Category Reaction Reaction Severity Criticality Documentation Date Start Date Code Code System Note Provider Name and Address Organization Details Recorded Time 479279 amoxicill in medicatio n Not available Not available Not available 11/20/2018 723 RxNorm Leighann Dow [facility] 9 13:12:27 Medications Name Sig Start Date Stop Date Status Note LastModified by Organization Details LastModified Time prednisone 10 mg tablet Take 1 tablet every day by oral route. 11/25 completed Not Available Not Available Not Available ketotifen 0.025 % (0.035 %) eye drops INSTILL 1 DROP INTO AFFECTED EYE(S) BY OPHTHALMI C ROUTE 2 TIMES PER DAY active Not Available Not Available No t Available sucralfate 1 gram tablet Take 1 tablet 4 times a day by oral route. 11/25 completed Not Available Not Available Not Available omeprazole 40 mg capsule,del ayed release Take 1 capsule every day by oral route. 2019 active Not Available Not Available Not Avai lable ranitidine 300 mg capsule Take 1 capsule every day by oral route. 07/02 completed Not Available Not Available Not Available montelukast 10 mg tablet Take 1 tablet every day by oral route. active Not Available Not Available No t Available mupirocin 2 % topical ointment APPLY A SMALL AMOUNT TO THE AFFECTED AREA BY TOPICAL ROUTE 3 TIMES PER DAY 11/25 completed Not Available Not Available Not Available ipratropium bromide 21 mcg (0.03 %) nasal spray [place] 2 sprays twice a day by intranasa l route. active Not Available Not Available No t Available loratadine 10 mg tablet Take 1 tablet every day by oral route. 11/25 completed Not Available Not Available Not Available Ventolin 90 mcg/actuati on aerosol inhaler Inhale 1 puff every 4 hours by inhalatio n route as needed. active Not Available Not Available No t Available Prilosec OTC 20 mg tablet,vivian yed release Take 1 tablet every day by oral route. 11/25 completed Not Available Not Available Not Available Xyzal once daily active Not Available Not Available No t Available Creon 36,000 unit-114,00 0 unit-180,00 0 unit capsule,del ayed release Take 1 capsule 3 times a day by oral route. 2019 active Not Available Not Available Not Avai lable Vitals Date Recorded Body height Body temperature Provider N terry and Address Organization Details Last Updated DateTime 07/03/2019 157.48 cm 98.3 [degF] Leighannreji Dow [facility] 07/03/2019 12:02:36 Date Recorded Body height Body mass index (BMI) Body weight Heart rate Oxygen saturation Oxygen saturation in Arterial blood by Pulse oximetry Systolic blood pressure Diastolic blood pressure Provider Name and Address Organization Details Last Updated DateTime 0 157.48 cm 33.3 kg/m2 37098.2 1 g 68 /min 97 % 97 % 130 mm[Hg] 86 mm[Hg] Noni Maldonado [facility] 0 13:20:08 Date Recorded Body temperature Provider Name a nd Address Organization Details Last Updated DateTime 08/20/2019 97.5 [degF] Stalin Negron [facility] 0 08/20/2019 12:55:27 Date Recorded Body weight Body mass index (BMI) Body height Heart rate Oxygen saturation Oxygen saturation in Arterial blood by Pulse oximetry Body temperature Systolic blood pressure Diastolic blood pressure Provider Name and Address Organization Details Last Updated DateTime 9 40673.4 g 31.1 kg/m2 157.48 cm 68 /min 98 % 98 % 97.2 [degF] 100 mm[Hg] 72 mm[Hg] Noni Maldonado [facility] 9 09:26:11 Date Recorded Body height Body mass index (BMI) Body weight Body temperature Oxygen saturation Oxygen saturation in Arterial blood by Pulse oximetry Heart rate Systolic blood pressure Diastolic blood pressure Provider Name and Address Organization Details Last Updated DateTime 0 157.48 cm 32.2 kg/m2 49625.2 6 g 97.3 [degF] 98 % 98 % 69 /min 110 mm[Hg] 60 mm[Hg] Leighann Dow [facility] 0 15:04:37 Social History Question Answer Notes LastModified by Organizat ion Details LastModified Time Tobacco Smoking Status Former Smoker Leighann Dow [facility] 07/03/2019 12:05:07 How Much Tobacco Do You Chew? None Information not available 11/25/2018 If Patient Spent Time In [facility] - Does The Patient Live In [facility]? No [email or web address] Information not available 07/03/2019 In The 14 Days Before Symptom Onset, Did The Patient Spend Time In [facility]? No Information not available 07/03/2019 Have You Been To An Area Known To Be High Risk For COVID-19? No [email or web address] Information not available 07/03/2019 Live Alone Or With Others? With Others [email or web address] Information not available 07/03/2019 Education Level Associate Degree [email or web address] Information not available 07/03/2019 Exposure To Smoke No [email or web address] Information not available 07/03/2019 Marital Status [email or web address] Informatio n not available 07/03/2019 What Was The Date Of Your Most Recent Tobacco Screening? 02/11/2020 [email or web address] Information not available 02/11/2020 How Many Children Do You Have? 2 [email or web address] Information not available 07/03/2019 How Much Tobacco Do You Smoke? No Information not available 11/25/2018 How Many Years Have You Smoked Tobacco? 0 Information not available 11/25/2018 Sex: Unknown Functional Status Question Answer Note LastModified by Organizat ion Details LastModified Time What is your level of alcohol consumption? Occasional Information not available 11/25/2018 Do you or have you ever used smokeless tobacco? Never used smokeless tobacco Information not available 11/25/2018 Do you or have you ever used e-cigarettes or vape? Never used electronic cigarettes Information not available 11/25/2018 Mental Status None recorded. Family History Nothing Reported. Medical History No medical history recorded. Gynecological HistoryNo gynecological history recorded. Obstetrics History GPAL:G 0 P 0 0 0 0 Immunizations Vaccine Type Date Status Note Provider Nam e and Address Organization Details Recorded Time Influenza, split virus, quadrivalent, preservative 9 completed Leighann Dow [facility] 07/03/2019 12:06:59 Past Encounters Encounter ID Performer Location Encounter Start Date Encounter Closed Date Diagnosis/Indication Diagnosis SNOMED-CT Code Diagnosis ICD10 Code Diagnosis Note [id number] NATALIE COLE MD [facility] [address] [address] [place] [id number] 6 05/18/2016 13:32:58 05/18/2016 14:40:12 [id number] NATALIE COLE MD [facility] [address],[facility] [address] [place] [id number] 6 08/24/2016 15:29:18 08/25/2016 08:47:54 [id number] NATALIE COLE MD [facility] [address],[place] [address] [place] [id number] 6 11/24/2016 13:20:20 11/27/2016 08:05:01 [id number] NATALIE COLE MD [facility] [address],[place] [address] [place] [id number] 6 05/28/2017 13:58:01 05/28/2017 14:38:04 [id number] NATALIE COLE MD [facility] [address],[place] [address] [place] [id number] 6 11/05/2017 08:47:41 11/05/2017 09:52:00 [id number] NATALIE COLE MD [facility] [address],[place] [address] [place] [id number] 6 05/20/2018 11:00:26 05/20/2018 12:28:05 [id number] NATALIE COLE MD [facility] [address] [place] [address] 11/25/2018 08:59:22 11/25/2018 10:19:49 Follicular lymphoma 773441585 C82.90 [id number] NOHEMI ANNE MD [facility] [address] [place] [address] 07/03/2019 11:49:23 07/03/2019 14:05:29 Follicular lymphoma 706559994 C82.90 [id number] NOHEMI ANNE MD [facility] [address] [place] [address] 08/20/2019 12:50:16 08/20/2019 14:45:21 Follicular lymphoma 406912805 C82.90 Nondiabeti c gastroparesis 91998161 K31.84 [id number] NOHEMI ANNE MD [facility] [address] [place] [address] 02/11/2020 14:34:47 02/11/2020 16:56:53 Follicular lymphoma 567859875 C82.90 Health Concerns Section Related Observation LastModified by Organization Detai ls LastModified Time None Recorded Concern Status LastModified by Organization Details LastModified Time None Recorded Advance Directives Directive None Recorded Payers Insurance Date Sequence Insurance Name Policy Number Policy Sams Covered Member ID Sams Member ID Guarantor Name 02/07/2021 1 [employer] [id number] Andres Montemayor [id number] Renny Montemayor 02/04/2020 1 [employer] [place] (MEDICAID REPLACEMENT - HMO) CSKY Rennylona Montemayor [id number] Rennylona Montemayor 05/23/2018 1 *SELF PAY* Th sirenaricardo Montemayor 07/14/2020 PAYMENT PLAN Renny Montemayor 03/06/2024 1 [place] [id number] Renny Montemayor [id number] Rennylona Montemayor 03/06/2024 2 [employer] [place] (MEDICAID HMO) Renny Montemayor [id number] Renny Montemayor 10/25/2022 1 [facility] Renny Montemayor [id number] Renny Montemayor Notes Date Note Type Note Provider Name and Address Organization Details Recorded Time 9 text/html HPIReported bypatient.Advanced Directives / BioBank AuthorizationsAdvanced Directives? NO Dischargedischarge disposition stable Distress ScreeningHas the distress screening been completed in the last 45 days? YES; Distress level 3 Practical Problemsno practical problems Family Problemsno family problems Emotional Problemsno emotional problems Spiritual/Religiousspiritua l/sikh problems? NO Physical Problemsno physical problems Nutrition ScreeningNutrition Screening YES; special diet restrictions? describe: (gastreoporesis); Nutrition counseling last 6 months? NO; Nutrition Protocol implemented? NO Ms. Montemayor is in for follow up of follicular non-Hodgkin's lymphoma. She had extensive disease in the time of diagnosis and was treated with Treanda/Rituxan. She completed 4 cycles of this with the last 2 planned cycles aborted due to prolonged cytopenias. She has had a complete radiographic response, however. She is almost 5.5 years out from completing chemotherapy and most recently there has been some slight regrowth of retroperitoneal lymph nodes. These have not been very large and are asymptomatic so we have followed with observation only. Most recent imaging was May 2018 with stable small retroperitoneal lymph nodes. There has been no new peripheral lymphadenopathy. There have been no new medical problems since I saw her last. This includes no hospitalizations or surgeries. NATALIE COLE MD [address] [place] [address], [phone], [facility] 11/25/2018 09:38:39 0 text/html HPIReported bypatient.Advanced Directives / BioBank AuthorizationsAdvanced Directives? NO Dischargedischarge disposition stable Distress ScreeningHas the distress screening been completed in the last 45 days? YES; Distress level 0 no stress Practical Problemsno practical problems Family Problemsno family problems Emotional Problemsno emotional problems Spiritual/Religiousspiritua l/sikh problems? NO Physical Problemsweight gain Nutrition ScreeningNutrition Screening YES; special diet restrictions? describe: (gastreoporesis); Nutrition counseling last 6 months? NO; Nutrition Protocol implemented? NO Ms. Montemayor is a pleasant 54-year-old lady from [place], [place], who returns for follow-up of follicular non-Hodgkin's lymphoma. This was diagnosed around May 2013, with diffuse adenopathy, largest area 9.5 cm in retroperitoneum; bone marrow biopsy showed extensive involvement by low grade follicular center cell lymphoma, positive for BCL-2 translocation, negative for BCL-6 translocation. FLIPI score was 2, intermediate risk. She was treated with 4 cycles of bendamustine and Rituxan, with a further 2 planned cycles omitted due to prolonged neutropenia. Her retroperitoneal mass gradually regressed over the next few years. Past medical history pertinent for osteoarthritis, GERD, cholecystectomy, sections, and depression. As Dr. Cole has left [facility], I am assuming her care. Visit today is being conducted via telephone only. Patient has expressed an understanding of this phone call as a visit and has consented. NOHEMI NANE MD [address] [place] [address], [phone], [facility] 07/03/2019 17:38:45 0 text/html HPIReported bypatient.Advanced Directives / BioBank AuthorizationsAdvanced Directives? NO Dischargedischarge disposition stable Distress ScreeningHas the distress screening been completed in the last 45 days? YES; Distress level 0 no stress Practical Problemsno practical problems Family Problemsno family problems Emotional Problemsno emotional problems Spiritual/Religiousspiritua l/sikh problems? NO Physical Problemsweight gain Nutrition ScreeningNutrition Screening YES; special diet restrictions? describe: (gastreoporesis); Nutrition counseling last 6 months? NO; Nutrition Protocol implemented? NO Ms. Montemayor is a pleasant 54-year-old lady from [place], [place], who returns for follow-up of follicular non-Hodgkin's lymphoma. This was diagnosed around May 2013, with diffuse adenopathy, largest area 9.5 cm in retroperitoneum; bone marrow biopsy showed extensive involvement by low grade follicular center cell lymphoma, positive for BCL-2 translocation, negative for BCL-6 translocation. FLIPI score was 2, intermediate risk. She was treated with 4 cycles of bendamustine and Rituxan, with 2 further planned cycles omitted due to prolonged neutropenia. Her retroperitoneal mass gradually regressed over the next few years. CT scans in June 2019 showed no adenopathy or mass. Past medical history is pertinent for osteoarthritis, GERD, cholecystectomy, sections, and depression. NOHEMI ANNE MD [address] [place], [address], [facility] 08/24/2019 12:39:06 0 text/html HPIReported bypatient.Advanced Directives / BioBank AuthorizationsAdvanced Directives? NO Dischargedischarge disposition stable Distress ScreeningHas the distress screening been completed in the last 45 days? YES; Distress level 3 Practical Problemsfinancial/insurance stress Family Problemsno family problems Emotional Problemsno emotional problems Spiritual/Religiousspiritua l/sikh problems? NO Physical Problemsweight gain;tingling in hands and feet; for past 2 months left foot pain, numbness, tingling when first getting up Nutrition ScreeningNutrition Screening YES; special diet restrictions? describe: (gastreoporesis); Nutrition counseling last 6 months? NO; Nutrition Protocol implemented? NO Ms. Montemayor is a pleasant 55-year-old lady from [place], [place], who returns for follow-up of follicular non-Hodgkin's lymphoma. This was diagnosed around May 2013, with diffuse adenopathy, largest area 9.5 cm in retroperitoneum; bone marrow biopsy showed extensive involvement by low grade follicular center cell lymphoma, positive for BCL-2 translocation, negative for BCL-6 translocation. FLIPI score was 2, intermediate risk. She was treated with 4 cycles of bendamustine and Rituxan, with 2 further planned cycles omitted due to prolonged neutropenia. Her retroperitoneal mass gradually regressed over the next few years. CT scans in June 2019 showed no adenopathy or mass. Past medical history is pertinent for osteoarthritis, GERD, cholecystectomy, sections, and depression. NOHEMI ANNE MD [facility] [place], [address], [facility] 02/15/2020 15:44:26 OBGyn Episode No OBEpisode recorded.
--- OUTSIDE RECORDS SUMMARY | 2024-08-21 15:09 | XMS_ITS | Continuity of Care Document ---
Author Organization [facility] Address [address] [place] [address] Care Team Providers Care School Program Director Name Role Phone OKSANA CALOS Referring Provider [phone] Assessment No assessment recorded. Plan of Treatment Reminders Order Date Submit Date Provider Last Modified By Organization Details Last Modified Time Details Appointments OV EST 15 2024 09:00A M ROASLINA LY MD Not available Not available Not available Lab None recorded. Referral None recorded. Procedures None recorded. Surgeries None recorded. Imaging None recorded. Medication Orders clobetaso l 0.05 % topical gel 2024 025 CAR[facility], [address] [place], [address], 07/01/2024 13:18:23 Patient TargetsNo targets recorded. Patient InstructionsNo instructions recorded. Reason for Referral None Reported. 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 Procedures Surgical History Date Name Laterality Status Provider Name and Address Organization Details Recorded Time operation on gallbladder completed Nora Ang [facility] & [place] 06/25/2024 15:06:11 Imaging Results None recorded. Procedure Notes None recorded. Medical Equipment None Reported. Allergies Allergen ID Allergen Name Allergen Category Reaction Reaction Severity Criticality Documentation Date Start Date Code Code System Note Provider Name and Address Organization Details Recorded Time 876212 amoxicill in medicatio n Not available Not available Not available 06/25/2024 723 RxNorm Nora Jones n [facility], [facility] & [place] 5 15:03:19 Medications Name Sig Start Date Stop [...] Updated DateTime 5 157.48 cm 30.2 kg/m2 47376.7 4 g 98 [degF] 96 % 96 % Nora gibbs [facility] 15:03:06 Social History Question Answer Notes LastModified by Medefy Details LastModified Time Tobacco Smoking Status Never Smoker Shilpi Schmitz ekaterina, [facility] & [place] 06/23/2024 14:22:28 Has Tobacco Cessation Counseling Been Provided? No Information not available 06/23/2024 Sex: Female Functional Status Question Answer Note LastModified by Medef[employer] Details LastModified Time Do you use any [...] Time Father No current problems or disability [email or web address] Not available 14:55:11 Father Chronic obstructive pulmonary disease pt. added direct ly (06/24) [email or web address] Not available 06/24/2024 07:41:20 Father Disorder of endocrine system pt. added direct ly (06/24) [email or web address] Not available 06/24/2024 07:41:55 Mother No current problems or disability Not available 14:55:11 Mother Chronic obstructive pulmonary [...] Disorder N Anesthesia Complications N Heart Attack (OR) N Anxiety Disorder N Diabetes N Bleeding Disorder N Arthritis N Hearing Loss N Tuberculosis N Acid Reflux (GERD) Y Hyperlipidemia N Cancer Y Stroke N Asthma N Sleep Disorder N GERD/Reflux N Heart Disease N Headaches N Fibromyalgia N Hypertension N Speech Delay N Kidney Disease N Gynecological HistoryNo gynecological history recorded. Obstetrics History GPAL:G 0 P 0 0 0 0 Past Encounters Encounter ID Performer Location Encounter Start Date Encounter Closed Date Diagnosis/Indication Diagnosis SNOMED-CT Code Diagnosis ICD10 Code Diagnosis Note [id number] ROSALINA LY MD [facility] [address] [place], [place] [address] 06/25/2024 14:54:51 06/25/2024 15:31:30 Oral lichen planus [id number] L43.8 - Various areas of white striations [...] by Organization Details LastModified Time None Recorded Payers Encounter Date Sequence Insurance Name Policy Number Policy Sams Covered Member ID Sams Member ID Guarantor Name 06/25/2024 1 [place] [id number] Andres Montemayor [id number] Lisa Montemayor Notes Date Note Type [...] to Non hodgkins lymphoma. ROSALINA LY MD [address] [place] [address], [address], [place], [address], [facility] [place] & [place] 06/25/2024 15:36:24 OBGyn Episode No OBEpisode recorded.
[2024-08-21 15:18] LABS: Alanine Aminotransferase 17 U/L (12-78); Albumin Level 4.4 g/dl (3.5-5.0); Albumin/Globulin Ratio 2.1 (1.1-1.8); Alkaline Phosphatase 55 U/L (38-126); Aspartate Amino Transferase 27 U/L (14-36); Bilirubin,Total 0.9 mg/dl (0.2-1.3); Blood Urea Nitrogen 19 mg/dl (7-17); Calcium 9.3 mg/dl (8.4-10.2); Carbon Dioxide 28 mmol/L (22.0-30.0); Chloride 107 mmol/L (98-107); Estimated Glomerular Filt Rate 73 ml/min (>60); GFR (African American) 88 ML/MIN (>60); Globulin 2.1 g/dL (1.3-3.2); Glucose 82 mg/dl (74-100); Lactate Dehydrogenase 271 U/L (313-618); Sodium 137 mmol/L (136-145); Total Protein,Serum 6.5 g/dl (6.3-8.2)
== END 2024-08-21 23:59 | disposition home or self-care (01) ==
LOC: LAB 14:27
PROVIDERS: Visit Provider Internal Medicine Medical Oncology
DX: C82.90 Follicular lymphoma, unspecified, unspecified site (principal)
CPT/HCPCS: 36415; 80053; 83615; 85025